=== PATIENT | female | born 1955 | race Caucasian/White ===

== ENCOUNTER 2024-07-21 17:23 | Inpatient (IN) ==
[2024-07-21 18:07] LABS: Basophils # (auto) 0.07 K/uL (0.00-0.20); Basophils % (auto) 0.6 %; Eosinophils # (auto) 0.17 K/uL (0.00-0.50); Eosinophils % (auto) 1.5 %; Hematocrit (blood only) 47.9 % (37.0-47.0); Hemoglobin 16.3 g/dl (12.0-16.0); Immature Granulocytes # (auto) 0.05 K/uL (0.01-0.20); Immature Granulocytes % (auto) 0.4 %; Lymphocytes # (auto) 3.15 K/uL (1.20-3.40); Lymphocytes % (auto) 27.7 %; Mean Corpuscular Hemoglobin 27.9 pg (25.0-34.0); Mean Corpuscular Volume 81.9 fL (80.0-100.0); Mean Platelet Volume 11.7 fL (9.4-12.4); Monocytes # (auto) 0.91 K/uL (0.11-0.59); Neutrophils # (auto) 7.01 K/uL (1.40-6.50); Neutrophils % (auto) 61.8 %; Platelet Count 233 K/uL (130-400); RDW Coefficient of Variation 14.2 % (11.5-14.5); RDW Standard Deviation 41.6 fL (36.4-46.3); Red Blood Count 5.85 M/uL (4.20-5.40); White Blood Count 11.36 K/ul (4.8-10.8)
--- NOTE | 2024-07-21 18:11 | Emergency Department Note ---
Impression & Plan Hypokalemia, Current every day smoker, Acute kidney injury, Recurrent falls, Elevated hemoglobin, Right bundle branch block ED Provider Note NAME: MUKESH BARONE AGE: 69 SEX: F : 1955 ARRIVES VIA: Walk-In INFORMANT: Patient ED PROVIDER(S): Joshua Ascencio MD CHIEF COMPLAINT: Illness, generalized weakness, recurrent falls, right hip pain PLAN: Disposition: Admit MEDICAL DECISION MAKING: The patient is a pleasant 69-year-old woman with a past medical history of everyday smoking, COPD, hypothyroidism, hypertension, hyperlipidemia, GERD, diabetes, CHF with history of abnormal stress test who presents to the emergency department via walk-in accompanied by her son for evaluation of generalized weakness, dizziness with recurrent falls over the past week with patient reports having had nausea and vomiting with poor oral intake. She denies any head strike or loss of consciousness with her falls. She reports she usually develops generalized weakness in her legs and falls to her knees and hands. However last night she fell backwards onto her buttocks and has subsequently had right hip pain. She denies chest pain. She reports mild cough and congestion with shortness of breath. On evaluation the patient is fatigued appearing no distress, afebrile stable vital signs. She appears clinically dry. She has no focal neurologic deficits. She has tenderness of the right lateral aspect of the hip without gross deformity or shortening. She has limited range of motion secondary to pain. Mild right lower lumbar discomfort without discrete tenderness. No midline tenderness to palpation or step-offs of the CTL spine. Distal PMS intact. EKG demonstrates right bundle branch block with LVH without prior for comparison. There is no overt ST elevation or depression. Chest x-ray negative for acute cardiopulmonary process. Plain films of the pelvis and right hip negative for fracture. WBC 11.3 K with neutrophilia but no left shift, nonspecific. H/H 16.3/47.9, increased from prior and consistent with the patient's clinical dry appearance as well as her daily smoking and COPD. Chemistry without metabolic acidosis. Initial potassium 2.5 with IV repletion initiated as well as oral repletion provided. Creatinine is 1.6, increased from patient's normal baseline consistent with CLAUDIO. LFTs are unremarkable. High-sensitivity troponin initially 14.4 with delta 2-hour HS troponin 11.2, within normal limits. Lipase is not elevated. TSH within normal limits. UA without convincing evidence of infection. Respiratory BioFire was negative. CT of the head negative for acute abnormalities. CT of the lumbar spine and abdomen pelvis also negative for acute traumatic findings or acute process otherwise. Given the patient's severely low potassium and CLAUDIO patient and her son agree with plan admission for further management. Case was discussed with JUANJOSE Jeronimo PAC, with JUANJOSE Gary hospitalist who will evaluate the patient for admission. Further management per admitting team. Triage Nursing notes reviewed and agree them. Prior/external medical records reviewed Vital Signs: reviewed Differential diagnosis: Infection, dehydration, metabolic abnormality, hypo/hyperglycemia, electrolyte disturbance, anemia, hypoxia, cardiac sources, intracerebral event, toxicologic, neurologic, as well as other pathologies. ER treatment provided: See below. Diagnostics interpreted by me: ECG: Normal sinus rhythm, 83 bpm, no ectopy, right bundle branch block, LVH, no overt ST elevation or depression, QTc 528, QRS 162. Cardiac Monitoring: An order for continuous cardiac monitoring was placed and demonstrated normal sinus rhythm, 83 bpm, no ectopy. Laboratory studies: See below Imaging studies: See below Consultation(s): JUANJOSE Jeronimo PAC, with JUANJOSE Gary hospitalist HPI: The patient is a pleasant 69-year-old woman with a past medical history of everyday smoking, COPD, hypothyroidism, hypertension, hyperlipidemia, GERD, diabetes, CHF with history of abnormal stress test who presents to the emergency department via walk-in accompanied by her son for evaluation of generalized weakness, dizziness with recurrent falls over the past week with patient reports having had nausea and vomiting with poor oral intake. She denies any head strike or loss of consciousness with her falls. She reports she usually develops generalized weakness in her legs and falls to her knees and hands. However last night she fell backwards onto her buttocks and has subsequently had right hip pain. She denies chest pain. She reports mild cough and congestion with shortness of breath. ROS: See above HPI for pertinent positives & negatives. A total of 10 systems reviewed and were otherwise negative. VITALS:See Below PHYSICAL EXAMINATION: GENERAL: Awake, alert, fatigued-appearing, in no distress HENT: Normocephalic, atraumatic. Oropharynx with dry mucous membranes and otherwise unremarkable. . EYES: Normal conjunctiva. Sclera non-icteric. EOMI. No nystamgus. PEARRL. NECK: Supple. No nuchal rigidity. FROM. No JVD. No midline tenderness to palpation or step-offs. RESPIRATORY: Clear to auscultation. CARDIAC: Regular rate, normal rhythm. Extremities warm and well perfused. Pulses equal. ABDOMEN: Soft, non-distended. No tenderness to palpation. No rebound or guarding. No masses. MUSCULOSKELETAL: Chest examination reveals no tenderness. The back is symmetrical on inspection without obvious abnormality. There is no CVA tenderness to palpation. Tenderness of the right lateral aspect of the hip without gross deformity or shortening. Limited range of motion secondary to pain. Mild right lower lumbar discomfort without discrete tenderness. No midline tenderness to palpation or step-offs of the CTL spine. Distal PMS intact. LOWER EXTREMITIES: Calves are equal size bilaterally and non-tender. No edema. No discoloration. NEURO: Normal sensorium. No focal sensory or motor deficits noted. 5/5 strength and SILT x 4 extremities. Intact [id number]. SKIN: No rash or jaundice noted. Joshua Ascencio MD Past Med/Surg History Problem List Acute diarrhea Vomiting Chest pain Right bundle branch block (Acute) Elevated hemoglobin (Acute) Recurrent falls (Acute) Hypokalemia (Acute) Dizzy Fall Leukocytosis Hypokalemia Acute kidney injury (Acute) Insomnia Spondylosis without myelopathy or radiculopathy, lumbar region Lumbar degenerative disc disease Post laminectomy syndrome Chronic pain Lightheaded Abnormal stress test CHF (congestive heart failure) Current every day smoker (Acute) Depression with anxiety Hypothyroid COPD (chronic obstructive pulmonary disease) (Chronic) Diabetes (Chronic) GERD (gastroesophageal reflux disease) (Chronic) High cholesterol (Chronic) Hypertension (Chronic) Surgical History History of back surgery X3 S/P appendectomy S/P knee surgery L, "They took my kneecap out." S/P hernia surgery X12 per pt Family History Mother Breast cancer Denies family history of Ovarian cancer Prostate cancer Myocardial infarction Colorectal cancer Social History Smoking Status: Current every day smoker Tobacco Type: Cigarettes Age Started Using Tobacco: 14; packs per day: 0.5; Cigarettes Per Day: 5; Second Hand Exposure: No; Do You Dip or Chew Tobacco: No; Tobacco Cessation Education Requested by Patient: No Hx Alcohol Use: No Hx Substance Use: No Preferred Language: Uzbek Communication Ability: Effective 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: No Beliefs That Will Affect Care: None marital status: Legally Current Living Situation: Alone Current Living Situation Comment: son current occupational status: disabled How many Children do You have: 4 Other Information That Helps Us Care for You: No Feels Safe at Home: Yes Safety Concerns: Feels Safe At This Time Childhood Exposure to Second-Hand Smoke: Yes Diet: regular Dental Care, Regularly: No Physical Activity Frequency: Does not Exercise Seatbelt Use: always Sunscreen Use: Yes Assistive Devices: Denture - Upper and Glasses Allergies Allergies Allergy/AdvReac Type Severity Reaction Status Date / Time No Known Drug Allergies Allergy Verified 04/29/24 11:40 Home Meds Home Medications Medication Instructions Recorded Confirmed albuterol sulfate 90 mcg/actuation 2 puff inhalation Q6H PRN 01/05/24 07/21/24 aerosol inhaler Shortness Of Breath Or Wheezing fluticasone fur. 200 mcg-umeclid 1 inh inhalation QA 01/05/24 07/21/24 62.5 mcg-vilant 25 mcg inhalat.powder (Trelegy Ellipta) chlorthalidone 50 mg tablet 50 mg PO QAM 07/21/24 07/21/24 dapagliflozin propanediol 10 mg 10 mg PO [facility] 07/21/24 07/21/24 tablet (Farxiga) ezetimibe 10 mg tablet 10 mg PO QAM 07/21/24 07/21/24 levothyroxine 112 mcg tablet 112 mcg PO DAILYBB 07/21/24 07/21/24 metoprolol succinate 25 mg 25 mg PO QA 07/21/24 07/21/24 tablet,extended release 24 hr roflumilast 500 mcg tablet 500 mcg PO QAM 07/21/24 07/21/24 rosuvastatin 40 mg tablet 40 mg PO HS 07/21/24 07/21/24 sertraline 100 mg tablet 150 mg PO QA 07/21/24 07/21/24 tizanidine 4 mg tablet 4 mg PO BID 07/21/24 07/21/24 Previous Rx's Medication Instructions Recorded nitroglycerin 0.4 mg sublingual 0.4 mg sublingual Q5M PRN chest 03/05/24 tablet pain #25 tabs Spacer for Inhaler #1 ea 04/21/24 furosemide 20 mg tablet 20 mg PO QAM #30 tabs 06/14/24 eszopiclone 2 mg tablet (Lunesta) 2 mg PO HS PRN insomnia #30 tabs 06/16/24 oxycodone 10 mg tablet 10 mg PO QID PRN pain #120 tabs 07/15/24 Results & Data (ED) Vital Signs Vital Signs - 24 hr 07/21/24 17:26 07/21/24 17:56 07/21/24 17:57 Temperature 36.8 C Temperature Source Temporal Artery Scan Pulse Rate 90 82 80 Pulse Rate [Apical] Pulse Rhythm Regular Pulse Rhythm [Apical] Respiratory Rate 16 20 Respiratory Effort / Characteristics Respiratory Depth Blood Pressure 135/83 Blood Pressure [Right Arm] Blood Pressure Mean 100 Blood Pressure Mean [Right Arm] Pulse Oximetry 95 94 Oxygen Delivery Method Room Air Room Air Sepsis Recent Fever Within 48 Hours No Sepsis New/Unexplained Change in Mental Status N/A Sepsis Action Taken by Nursing No Action Required 07/21/24 18:11 07/21/24 19:00 07/21/24 21:00 Temperature Temperature Source Pulse Rate Pulse Rate [Apical] 70 66 Pulse Rhythm Pulse Rhythm [Apical] Regular Respiratory Rate 16 17 Respiratory Effort / Characteristics Non-Labored Spontaneous Non-Labored Spontaneous Respiratory Depth Normal Normal Blood Pressure Blood Pressure [Right Arm] 139/79 146/77 H Blood Pressure Mean Blood Pressure Mean [Right Arm] 99 100 Pulse Oximetry 92 94 94 Oxygen Delivery Method Room Air Room Air Room Air Sepsis Recent Fever Within 48 Hours Sepsis New/Unexplained Change in Mental Status Sepsis Action Taken by Nursing Laboratory Data Attestation: I reviewed the patient's lab results. 07/21/24 17:45 07/21/24 23:56 Lab Results 07/21/24 07/21/24 07/21/24 Range/Units 17:30 17:45 19:42 WBC 11.36 H (4.8-10.8) K/ul RBC 5.85 H (4.20-5.40) M/uL Hgb 16.3 H (12.0-16.0) g/dl Hct 47.9 H (37.0-47.0) % MCV 81.9 (80.0-100.0) fL MCH 27.9 (25.0-34.0) pg MCHC 34.0 (32.0-36.0) g/dL RDW Std Deviation 41.6 (36.4-46.3) fL RDW Coeff of Gerri 14.2 (11.5-14.5) % Plt Count 233 (130-400) K/uL MPV 11.7 (9.4-12.4) fL Immature Gran % (Auto) 0.4 % Neut % (Auto) 61.8 % Lymph % (Auto) 27.7 % Smith % (Auto) 8.0 % Eos % (Auto) 1.5 % Baso % (Auto) 0.6 % Neut # (Auto) 7.01 H (1.40-6.50) K/uL Lymph # (Auto) 3.15 (1.20-3.40) K/uL Smith # (Auto) 0.91 H (0.11-0.59) K/uL Eos # (Auto) 0.17 (0.00-0.50) K/uL Baso # (Auto) 0.07 (0.00-0.20) K/uL Immature Gran # (Auto) 0.05 (0.01-0.20) K/uL PT 10.9 (9.0-12.0) Seconds INR 1.0 (0.9-1.1) Sodium 136 (136-145) mmol/L Potassium TNP 2.5 L* Chloride 94 L (98-107) mmol/L Carbon Dioxide 29 (21-32) mmol/L Anion Gap 13 H (3-11) BUN 39 H (6-23) mg/dl Creatinine 1.62 H (0.6-1.2) mg/dl Est Cr Clr Drug Dosing Not Reportable eGFR 34.18 BUN/Creatinine Ratio 24.1 H (10-20) Glucose 109 H (70-99(Fasting)) mg/dl Calcium 10.0 (8.6-10.3) mg/dl Phosphorus 3.5 (2.5-4.9) mg/dl Magnesium 2.3 (1.7-2.4) mg/dl Total Bilirubin 0.5 (0.2-1.0) mg/dl AST TNP 20 ALT 12 (7-52) U/L Alkaline Phosphatase 89 (34-104) U/L Troponin I High Sens 14.4 H 11.2 (0-14) pg/ml B-Natriuretic Peptide 28 (0-100) pg/ml Total Protein 9.1 H (6.0-8.3) gm/dl Albumin 4.9 (3.4-5.0) gm/dl Globulin 4.2 H (2.5-4.0) gm/dl Albumin/Globulin Ratio 1.2 (0.9-2) Lipase 28 (11-82) U/L TSH 2.511 (0.300-4.500) uIu/ml Urine Color Urine Appearance (Clear) Urine pH (4.5-7.5) Ur Specific [place]wood (1.000-1.030) Urine Protein (Negative) Urine Glucose (UA) (Negative) Urine Ketones (Negative) Urine Blood (Negative) Urine Nitrite (Negative) Urine Bilirubin (Negative) Urine Urobilinogen (Negative) Ur Leukocyte Esterase (Negative) Ur Random Creatinine mg/dl Ur Random Sodium mmol/L Adenovirus (PCR) Not Detected (NotDetected) B. pertussis DNA (PCR) Not Detected (NotDetected) B.parapertussis DNA PCR Not Detected (NotDetected) C. pneumoniae DNA (PCR) Not Detected (NotDetected) Coronavirus OC43 (PCR) Not Detected (NotDetected) Coronavirus HKU1 (PCR) Not Detected (NotDetected) Coronavirus 229E (PCR) Not Detected (NotDetected) SARS-CoV-2 (PCR) Not Detected (NotDetected) Coronavirus NL63 (PCR) Not Detected (NotDetected) Human Metapneumovir PCR Not Detected (NotDetected) Influenza Type A (PCR) Not Detected (NotDetected) Influenza Type B (PCR) Not Detected (NotDetected) M. pneumoniae (PCR) Not Detected (NotDetected) Parainfluenza 1 (PCR) Not Detected (NotDetected) Parainfluenza 2 (PCR) Not Detected (NotDetected) Parainfluenza 3 (PCR) Not Detected (NotDetected) Parainfluenza 4 (PCR) Not Detected (NotDetected) RSV (PCR) Not Detected (NotDetected) Entero/Rhino (PCR) Not Detected (NotDetected) 07/21/24 Range/Units 21:23 WBC (4.8-10.8) K/ul RBC (4.20-5.40) M/uL Hgb (12.0-16.0) g/dl Hct (37.0-47.0) % MCV (80.0-100.0) fL MCH (25.0-34.0) pg MCHC (32.0-36.0) g/dL RDW Std Deviation (36.4-46.3) fL RDW Coeff of Gerri (11.5-14.5) % Plt Count (130-400) K/uL MPV (9.4-12.4) fL Immature Gran % (Auto) % Neut % (Auto) % Lymph % (Auto) % Smith % (Auto) % Eos % (Auto) % Baso % (Auto) % Neut # (Auto) (1.40-6.50) K/uL Lymph # (Auto) (1.20-3.40) K/uL Smith # (Auto) (0.11-0.59) K/uL Eos # (Auto) (0.00-0.50) K/uL Baso # (Auto) (0.00-0.20) K/uL Immature Gran # (Auto) (0.01-0.20) K/uL PT (9.0-12.0) Seconds INR (0.9-1.1) Sodium (136-145) mmol/L Potassium Chloride (98-107) mmol/L Carbon Dioxide (21-32) mmol/L Anion Gap (3-11) BUN (6-23) mg/dl Creatinine (0.6-1.2) mg/dl Est Cr Clr Drug Dosing eGFR BUN/Creatinine Ratio (10-20) Glucose (70-99(Fasting)) mg/dl Calcium (8.6-10.3) mg/dl Phosphorus (2.5-4.9) mg/dl Magnesium (1.7-2.4) mg/dl Total Bilirubin (0.2-1.0) mg/dl AST ALT (7-52) U/L Alkaline Phosphatase (34-104) U/L Troponin I High Sens (0-14) pg/ml B-Natriuretic Peptide (0-100) pg/ml Total Protein (6.0-8.3) gm/dl Albumin (3.4-5.0) gm/dl Globulin (2.5-4.0) gm/dl Albumin/Globulin Ratio (0.9-2) Lipase (11-82) U/L TSH (0.300-4.500) uIu/ml Urine Color Yellow Urine Appearance Clear (Clear) Urine pH 5.0 (4.5-7.5) Ur Specific [place] 1.022 (1.000-1.030) Urine Protein Negative (Negative) Urine Glucose (UA) 1+ H (Negative) Urine Ketones Negative (Negative) Urine Blood Negative (Negative) Urine Nitrite Negative (Negative) Urine Bilirubin Negative (Negative) Urine Urobilinogen Negative (Negative) Ur Leukocyte Esterase Negative (Negative) Ur Random Creatinine 58.2 mg/dl Ur Random Sodium 63 mmol/L Adenovirus (PCR) (NotDetected) B. pertussis DNA (PCR) (NotDetected) B.parapertussis DNA PCR (NotDetected) C. pneumoniae DNA (PCR) (NotDetected) Coronavirus OC43 (PCR) (NotDetected) Coronavirus HKU1 (PCR) (NotDetected) Coronavirus 229E (PCR) (NotDetected) SARS-CoV-2 (PCR) (NotDetected) Coronavirus NL63 (PCR) (NotDetected) Human Metapneumovir PCR (NotDetected) Influenza Type A (PCR) (NotDetected) Influenza Type B (PCR) (NotDetected) M. pneumoniae (PCR) (NotDetected) Parainfluenza 1 (PCR) (NotDetected) Parainfluenza 2 (PCR) (NotDetected) Parainfluenza 3 (PCR) (NotDetected) Parainfluenza 4 (PCR) (NotDetected) RSV (PCR) (NotDetected) Entero/Rhino (PCR) (NotDetected) Administered Medications Potassium Chloride (K Shayan / Wtr) 10 meq in 100 mls @ 100 mls/hr IV Q1H NATE Stop: 01/16/25 05:29 Last Admin: 07/22/24 03:41 Dose: 100 mls/hr Documented By: Infusion: 07/22/24 03:35 Dose: Infused Documented By: Admin: 07/22/24 02:35 Dose: 100 mls/hr Documented By: Infusion: 07/22/24 02:35 Dose: Infused Documented By: Admin: 07/22/24 01:37 Dose: 100 mls/hr Documented By: SANTANA Sodium Chloride (Nss) 500 mls @ 80 mls/hr IV .Q6H15M NATE Stop: 07/22/24 07:44 Last Admin: 07/22/24 02:28 Dose: 80 mls/hr Documented By: SANTANA Miscellaneous (Order Awaiting Action - Farxiga 10 Mg Tablet) 1 each N/A QS NATE Stop: 08/21/24 00:00 Last Admin: 07/22/24 00:34 Dose: Not Given Documented By: SANTANA Rosuvastatin Calcium (Rosuvastatin Calcium 20 Mg Tab) 40 mg PO HS [facility] Stop: 08/20/24 23:44 Last Admin: 07/22/24 00:33 Dose: 40 mg Documented By: SANTANA Tizanidine HCl (Tizanidine Hcl 4 Mg Tablet) 4 mg PO BID [facility] Stop: 08/20/24 23:44 Last Admin: 07/22/24 00:33 Dose: 4 mg Documented By: SANTANA Discontinued Medications Sodium Chloride (Nss) 500 mls @ 999 mls/hr IV .Q31M ONE Stop: 07/21/24 19:51 Last Infusion: 07/21/24 20:01 Dose: Infused Documented By: Admin: 07/21/24 19:29 Dose: 999 mls/hr Documented By: KAI Acetaminophen (Ofirmev) 1,000 mg in 100 mls @ 400 mls/hr IV NOW STA Stop: 07/21/24 19:35 Last Infusion: 07/21/24 19:45 Dose: Infused Documented By: Admin: 07/21/24 19:26 Dose: 400 mls/hr Documented By: KAI Famotidine (Pepcid 20mg Iv Push) 20 mg in 5 mls @ 2.5 mls/min IV NOW STA Stop: 07/21/24 19:22 Last Admin: 07/21/24 19:26 Dose: 2.5 mls/min Documented By: KAI Sodium Chloride (Nss) 500 mls @ 125 mls/hr IV .Q4H ONE Stop: 07/22/24 00:40 Last Infusion: 07/22/24 01:07 Dose: Infused Documented By: Admin: 07/21/24 20:52 Dose: 125 mls/hr Documented By: KAI Potassium Chloride (K Shayan / Wtr) 10 meq in 100 mls @ 100 mls/hr IV Q1H NATE Stop: 07/21/24 22:44 Last Infusion: 07/21/24 23:00 Dose: Infused Documented By: Admin: 07/21/24 21:52 Dose: 100 mls/hr Documented By: Infusion: 07/21/24 21:52 Dose: Infused Documented By: Admin: 07/21/24 20:52 Dose: 100 mls/hr Documented By: KAI Ioversol (Optiray 320 100ml) 90 ml IV ONCE ONE Stop: 07/21/24 19:33 Last Admin: 07/21/24 19:33 Dose: 90 ml Documented By: FRANCISCA Ondansetron HCl (Ondansetron Inj 2 Mg/Ml 2 Ml Vial) 4 mg IV NOW STA Stop: 07/21/24 19:23 Last Admin: 07/21/24 19:26 Dose: 4 mg Documented By: KAI Oxycodone HCl (Oxycodone Hcl Ir 5 Mg Tab (Immediate Release)) 10 mg PO NOW STA Stop: 07/21/24 21:41 Last Admin: 07/21/24 21:49 Dose: 10 mg Documented By: KAI Potassium Chloride (Potassium Chloride Crtab 20 Meq Tabcr) 40 meq PO NOW STA Stop: 07/21/24 20:42 Last Admin: 07/21/24 20:51 Dose: 40 meq Documented By: KAI Potassium Chloride (Potassium Chloride Crtab 20 Meq Tabcr) 40 meq PO NOW STA Stop: 07/22/24 01:23 Last Admin: 07/22/24 02:28 Dose: 40 meq Documented By: SANTANA Imaging Data Radiologist's Impression: Chest X-Ray 07/21/24 17:39 Clinical History: Fall Technique: A frontal view of the chest was obtained Comparison is made with the prior examination dated 01/22/2024 Findings: There are no confluent pulmonary infiltrates. The heart size is within normal limits. No pleural effusion or pneumothorax is seen. There is no definite pulmonary nodule. No fracture is noted. No foreign body is seen Impression: No active disease Electronically signed by Eliseo Carson 07-21-2024 6:35 PM Hip/Pelvis X-Ray 07/21/24 17:39 Clinical History: Fall 2 views of the pelvis and right hip are submitted for review. Findings: No fracture or dislocation is seen. There is mild right hip osteoarthritis. No other osseous abnormality is identified. There are no radiopaque foreign bodies. Impression: 1. No definite fracture 2. Mild right hip osteoarthritis Electronically signed by Eliseo Carson 07-21-2024 6:34 PM Abdomen/Pelvis CT 07/21/24 19:16 Exam(s): CT ABDOMEN + PELVIS With Contrast IV Amt: 90 cc opti 320 EXAM: CT Abdomen and Pelvis With Intravenous Contrast CLINICAL HISTORY: Reason for exam: fall, right low back/hip pain. TECHNIQUE: Axial computed tomography images of the abdomen and pelvis with intravenous contrast. CTDI is 26.56 mGy and DLP is 1362.08 mGy-cm. Automated exposure control was utilized for the study. A dose lowering technique was utilized adhering to the principles of ALARA. CONTRAST: Patient received 90 cc opti 320 of IV contrast COMPARISON: No relevant prior studies available. FINDINGS: ABDOMEN: Liver: Unremarkable. Gallbladder and bile ducts: Cholelithiasis. Pancreas: Unremarkable. Spleen: Unremarkable. Adrenals: Unremarkable. Kidneys and ureters: Cortical scarring in the right kidney. Stomach and bowel: Unremarkable. PELVIS: Appendix: No findings to suggest acute appendicitis. Bladder: Unremarkable. Reproductive: Hysterectomy. ABDOMEN and PELVIS: Intraperitoneal space: Unremarkable. No free air. No significant fluid collection. Bones/joints: No acute fracture. Soft tissues: Unremarkable. Vasculature: Aortobiiliac atheromatous disease. Lymph nodes: Unremarkable. IMPRESSION: No acute traumatic injury. Electronically signed by: Don Rhodes MD 07/21/24 20:[address] 07/21/24 19:16 Exam(s): CT L SPINE With Contrast IV Amt: 90 cc opti 320 EXAM: CT Lumbar Spine With Intravenous Contrast CLINICAL HISTORY: Reason for exam: pain fall. TECHNIQUE: Axial computed tomography images of the lumbar spine with intravenous contrast. CTDI is 26 mGy and DLP is 1360 mGy-cm. Automated exposure control was utilized for the study. A dose lowering technique was utilized adhering to the principles of ALARA. CONTRAST: Patient received 90 cc opti 320 of IV contrast COMPARISON: No relevant prior studies available. FINDINGS: Vertebrae: No acute fracture or malalignment. Posterior pedicle screw and jonah construct from L3-L5. No hardware complication. Degenerative changes most pronounced at L2-3. No critical canal stenosis. Moderate bilateral foraminal stenosis at this level. Discs/spinal canal/neural foramina: See above. Soft tissues: Unremarkable. IMPRESSION: No acute fracture or malalignment. Electronically signed by: Don Rhodes MD 07/21/24 20:[address] 07/21/24 19:18 Exam(s): CT HEAD Without Contrast EXAM: CT Head Without Intravenous Contrast CLINICAL HISTORY: Reason for exam: dizziness. TECHNIQUE: Axial computed tomography images of the head/brain without intravenous contrast. CTDI is 35.65 mGy and DLP is 546.36 mGy-cm. Automated exposure control was utilized for the study. A dose lowering technique was utilized adhering to the principles of ALARA. COMPARISON: No relevant prior studies available. FINDINGS: Brain: No hemorrhage, extra-axial fluid collection, mass effect, or edema. Ventricles: Unremarkable. Bones/joints: Unremarkable. No fracture. Soft tissues: Unremarkable. Sinuses: No acute sinusitis. Mastoid air cells: Unremarkable as visualized. IMPRESSION: Unremarkable exam. Electronically signed by: Don Rhodes MD 07/21/24 20:42 PM Discharge Plan Visit Data Chief Complaint: Dizziness Stated Complaint: lightheaded, falling often, NAUSEA, HEADACHE ED Provider: Joshua Ascencio Discharge Problem: Hypokalemia, Current every day smoker, Acute kidney injury, Recurrent falls, Elevated hemoglobin, Right bundle branch block Patient Disposition: Admitted As Inpatient Discharge Instructions Interventions: ED Discharge Assessment Last Done: 07/21/24 23:04
--- NOTE | 2024-07-21 18:34 | XRay Report ---
Clinical History: Fall 2 views of the pelvis and right hip are submitted for review. Findings: No fracture or dislocation is seen. There is mild right hip osteoarthritis. No other osseous abnormality is identified. There are no radiopaque foreign bodies. Impression: 1. No definite fracture 2. Mild right hip osteoarthritis Electronically signed by Eliseo Carson 07-21-2024 6:34 PM
--- NOTE | 2024-07-21 18:35 | XRay Report ---
Clinical History: Fall Technique: A frontal view of the chest was obtained Comparison is made with the prior examination dated 01/22/2024 Findings: There are no confluent pulmonary infiltrates. The heart size is within normal limits. No pleural effusion or pneumothorax is seen. There is no definite pulmonary nodule. No fracture is noted. No foreign body is seen Impression: No active disease Electronically signed by Eliseo Carson 07-21-2024 6:35 PM
[2024-07-21 18:36] LABS: Alanine Aminotransferase 12 U/L (7-52); Albumin Globulin Ratio 1.2 (0.9-2); Albumin Level 4.9 gm/dl (3.4-5.0); Alkaline Phosphatase 89 U/L (34-104); Anion Gap 13 (3-11); BUN Creatinine Ratio 24.1 (10-20); Bilirubin,Total 0.5 mg/dl (0.2-1.0); Blood Urea Nitrogen 39 mg/dl (6-23); Carbon Dioxide 29 mmol/L (21-32); Chloride 94 mmol/L (98-107); Globulin 4.2 gm/dl (2.5-4.0); Glucose 109 mg/dl (70-99(Fasting)); Lipase 28 U/L (11-82); Magnesium 2.3 mg/dl (1.7-2.4); Phosphorus 3.5 mg/dl (2.5-4.9); Sodium 136 mmol/L (136-145); Total Protein 9.1 gm/dl (6.0-8.3); Troponin I High Sensitivity 14.4 pg/ml (0-14)
[2024-07-21 18:37] LABS: Prothrombin Time 10.9 Seconds (9.0-12.0)
[2024-07-21 18:44] LABS: Thyroid Stimulating Hormone 2.511 uIu/ml (0.300-4.500)
[2024-07-21 18:49] LABS: Adenovirus PCR Not Detected (NotDetected); Bordetella parapertussis PCR Not Detected (NotDetected); Bordetella pertussis PCR Not Detected (NotDetected); Chlamydia pneumoniae PCR Not Detected (NotDetected); Coronavirus 229E PCR Not Detected (NotDetected); Coronavirus CoV-2 (COVID19)PCR Not Detected (NotDetected); Coronavirus HKU1 PCR Not Detected (NotDetected); Coronavirus NL63 PCR Not Detected (NotDetected); Coronavirus OC43PCR Not Detected (NotDetected); Human Metapneumovirus PCR Not Detected (NotDetected); Influenza A PCR Not Detected (NotDetected); Influenza B PCR Not Detected (NotDetected); Mycoplasma pneumoniae PCR Not Detected (NotDetected); Parainfluenza Virus 1 PCR Not Detected (NotDetected); Parainfluenza Virus 2 PCR Not Detected (NotDetected); Parainfluenza Virus 3 PCR Not Detected (NotDetected); Parainfluenza Virus 4 PCR Not Detected (NotDetected); Respiratory Syncytial VirusPCR Not Detected (NotDetected); Rhinovirus/Enterovirus PCR Not Detected (NotDetected)
[2024-07-21] MEDS: ONDANSETRON INJ 2 MG/ML 2 ML VIAL IV STA (19:26)
[2024-07-21] MEDS: ACETAMINOPHEN 1,000 MG/100 ML VIAL IV STA (19:26)
[2024-07-21] MEDS: FAMOTIDINE 20MG IV PUSH 20 MG/5 ML SYR IV STA (19:26)
[2024-07-21] MEDS: SODIUM CHLORIDE 0.9% 500 ML IV ONE ×2 (19:29→20:52)
[2024-07-21] MEDS: OPTIRAY 320 100ml IV ONE (19:33)
[2024-07-21 20:27] LABS: Potassium 2.5 mmol/L (3.5-5.1)
--- NOTE | 2024-07-21 20:43 | CT Scan Report ---
Exam(s): CT HEAD Without Contrast EXAM: CT Head Without Intravenous Contrast CLINICAL HISTORY: Reason for exam: dizziness. TECHNIQUE: Axial computed tomography images of the head/brain without intravenous contrast. CTDI is 35.65 mGy and DLP is 546.36 mGy-cm. Automated exposure control was utilized for the study. A dose lowering technique was utilized adhering to the principles of ALARA. COMPARISON: No relevant prior studies available. FINDINGS: Brain: No hemorrhage, extra-axial fluid collection, mass effect, or edema. Ventricles: Unremarkable. Bones/joints: Unremarkable. No fracture. Soft tissues: Unremarkable. Sinuses: No acute sinusitis. Mastoid air cells: Unremarkable as visualized. IMPRESSION: Unremarkable exam. Electronically signed by: Don Rhodes MD 07/21/24 20:42 PM
--- NOTE | 2024-07-21 20:46 | CT Scan Report ---
Exam(s): CT L SPINE With Contrast IV Amt: 90 cc opti 320 EXAM: CT Lumbar Spine With Intravenous Contrast CLINICAL HISTORY: Reason for exam: pain fall. TECHNIQUE: Axial computed tomography images of the lumbar spine with intravenous contrast. CTDI is 26 mGy and DLP is 1360 mGy-cm. Automated exposure control was utilized for the study. A dose lowering technique was utilized adhering to the principles of ALARA. CONTRAST: Patient received 90 cc opti 320 of IV contrast COMPARISON: No relevant prior studies available. FINDINGS: Vertebrae: No acute fracture or malalignment. Posterior pedicle screw and jonah construct from L3-L5. No hardware complication. Degenerative changes most pronounced at L2-3. No critical canal stenosis. Moderate bilateral foraminal stenosis at this level. Discs/spinal canal/neural foramina: See above. Soft tissues: Unremarkable. IMPRESSION: No acute fracture or malalignment. Electronically signed by: Don Rhodes MD 07/21/24 20:45 PM
--- NOTE | 2024-07-21 20:47 | CT Scan Report ---
Exam(s): CT ABDOMEN + PELVIS With Contrast IV Amt: 90 cc opti 320 EXAM: CT Abdomen and Pelvis With Intravenous Contrast CLINICAL HISTORY: Reason for exam: fall, right low back/hip pain. TECHNIQUE: Axial computed tomography images of the abdomen and pelvis with intravenous contrast. CTDI is 26.56 mGy and DLP is 1362.08 mGy-cm. Automated exposure control was utilized for the study. A dose lowering technique was utilized adhering to the principles of ALARA. CONTRAST: Patient received 90 cc opti 320 of IV contrast COMPARISON: No relevant prior studies available. FINDINGS: ABDOMEN: Liver: Unremarkable. Gallbladder and bile ducts: Cholelithiasis. Pancreas: Unremarkable. Spleen: Unremarkable. Adrenals: Unremarkable. Kidneys and ureters: Cortical scarring in the right kidney. Stomach and bowel: Unremarkable. PELVIS: Appendix: No findings to suggest acute appendicitis. Bladder: Unremarkable. Reproductive: Hysterectomy. ABDOMEN and PELVIS: Intraperitoneal space: Unremarkable. No free air. No significant fluid collection. Bones/joints: No acute fracture. Soft tissues: Unremarkable. Vasculature: Aortobiiliac atheromatous disease. Lymph nodes: Unremarkable. IMPRESSION: No acute traumatic injury. Electronically signed by: Don Rhodes MD 07/21/24 20:46 PM
[2024-07-21] MEDS: POTASSIUM CHLORIDE CRTAB 20 MEQ TABCR PO STA (20:51)
[2024-07-21] MEDS: POTASSIUM CHLORIDE / WTR 10 MEQ/100 ML PLCT IV SCH (20:52)
--- NOTE | 2024-07-21 21:20 | History & Physical Report ---
Date of Service July 21, 2024 Assessment & Plan (1) Acute kidney injury: (2) Hypokalemia: (3) Vomiting: (4) Acute diarrhea: (5) Leukocytosis: (6) Fall: (7) Chest pain: (8) CHF (congestive heart failure): Plan Patient is a 69-year-old female with a past medical history of COPD, CHF, DM, HTN, anxiety, chronic pain, neurodermatitis. She had an abnormal stress test with cardiology in February 2024, was referred to [facility] for coronary CTA. She presents today due to vomiting, lightheadedness, and dizziness resulting in a fall last night. She is being admitted for CLAUDIO, hypokalemia, recurrent falls. She is being given IV fluids's, potassium repletion, and PT/OT ordered. #CLAUDIO/hypokalemia likely secondary to renal hypoperfusion due to dehydration with vomiting no recent NSAID use Cr increased from 0.98 to 1.62, BUN elevated to 39 indicating pre-renal cause CT AP showing cortical scarring in right kidney, no abnormalities of bladder FENa = 1.3% - indeterminate UA negative given 500 NSS bolus and 500 NSS gentle resuscitation (caution with CHF hx) trend BMP - recheck 2300 Hold nephrotoxic agents - diuretics (chlorthalidone and lasix) promote oral hydration hypokalemia - K+ 2.5 -> 20 meq IV + 40 meq po mg stable, 2.3 - trend #vomiting/diarrhea biofire negative CT AP negative clear diet, advance as tolerated QTC 530 - avoid Zofran Tylenol and metoclopramide prn #leukocytosis possibly 2/2 to chronic prednisone use although dc a few weeks ago WBC 11.36 with neutrophil predominance biofire negative, afebrile, UA negative trend CBC #fall/weakness suspect 2/2 to hypokalemia reviewed head CT, lumbar spine CT, A/P CT, hip/pelvis XR, CXR - negative for acute changes pt/ot ordered fall and aspiration precautions pt's family interested in setting up - case management consulted #chest pain chronic, Had abnormal stress test in February 2024 cardiac cath 2021 - reported to be without occlusive dz Was to have coronary CTA, insurance denied Takes nitroglycerin 1x daily with angina; continue prn trop negative 14.4 -> 11.2 EKG with chest pain monitor on tele #CHF EF 50-55% on stress test 2023 continue Farxiga holding diuretics as above heart healthy diet when tolerated Chronic stable diagnoses: COPD - no longer takes azithromycin MWF or chronic prednisone; continue Trelegy and Daliresp, albuterol prn HLD - continue Zetia and statin anxiety - continue sertraline insomnia - eszopiclone prn HTN - continue metoprolol hypothyroidism - continue levothyroxine chronic back pain - continue tizanidine and oxycodone 10mg prn VTE ppx: SCDs - low risk and fall risk Diet: clears (with vomiting) - advance as tolerated to heart healthy Dispo: med/tele Admission and Anticipated Discharge Date Admission Date: 07/21/24 History of Present Illness Chief Complaint: dizziness Primary Care Provider: IRIS Millan Patient is a 69-year-old female with a past medical history of COPD, CHF, HLD, HTN, anxiety, chronic pain, neurodermatitis. She had an abnormal stress test with cardiology in February 2024, was referred to [facility] for coronary CTA. She presents today due to vomiting, lightheadedness, and dizziness resulting in a fall last night. She was found to have an CLAUDIO and hypokalemia in ED. Patient seen at bedside with son present. She stated she has had vomiting and diarrhea for approximately 3 days. About 4 episodes of vomiting per day and 5 episodes of diarrhea per day. She also gets lightheaded when going from sitting to standing; which is chronic but has been acutely worsened for 3 days. She has had multiple falls recently, most recent last night. She stated she has had hip pain since. She denies head strike. She stated she had a fever 1 week ago with no other associated symptoms. She also has daily chest pain that is relieved with nitroglycerin, no change in frequency, has been ongoing for multiple months. She did not have the angiogram with [facility] because her insurance would not cover it. She is to have follow-up with cardiology in the near future. She does endorse nicotine use, approximately 5 cigarettes a day for about 50 years. She denies alcohol use. She lives at home with her son and his girlfriend. Son stated concern regarding care of his mother and him having to travel often, interested in home health. Patient denies fever, chills, headache, dizziness, current lightheadedness, cough, abdominal pain. She endorses chronic dyspnea due to COPD, unchanged. She has chronic tingling of bilateral lower extremities, unchanged. She also has intermittent lower extremity edema, no acute changes. She does not use oxygen at baseline. She did take her home medications today, is due for her evening medications. She wishes to be DNR/DNI. After discussion with patient and her son, is agreeable to PT/OT evals. Allergies Allergy/AdvReac Type Severity Reaction Status Date / Time No Known Drug Allergies Allergy Verified 04/29/24 11:40 Home Medications Medication Instructions Recorded Confirmed Type albuterol sulfate 90 mcg/actuation 2 puff inhalation Q6H PRN 01/05/24 07/21/24 History aerosol inhaler Shortness Of Breath Or Wheezing fluticasone fur. 200 mcg-umeclid 1 inh inhalation QAM 01/05/24 07/21/24 History 62.5 mcg-vilant 25 mcg inhalat.powder (Trelegy Ellipta) nitroglycerin 0.4 mg sublingual 0.4 mg sublingual Q5M PRN chest 03/05/24 07/21/24 Rx tablet pain #25 tabs Spacer for Inhaler #1 ea 04/21/24 07/21/24 Rx furosemide 20 mg tablet 20 mg PO QAM #30 tabs 06/14/24 07/21/24 Rx eszopiclone 2 mg tablet (Lunesta) 2 mg PO HS PRN insomnia #30 tabs 06/16/24 07/21/24 Rx oxycodone 10 mg tablet 10 mg PO QID PRN pain #120 tabs 07/15/24 07/21/24 Rx chlorthalidone 50 mg tablet 50 mg PO QAM 07/21/24 07/21/24 History dapagliflozin propanediol 10 mg 10 mg PO QAM 07/21/24 07/21/24 History tablet (Farxiga) ezetimibe 10 mg tablet 10 mg PO QAM 07/21/24 07/21/24 History levothyroxine 112 mcg tablet 112 mcg PO DAILYBB 07/21/24 07/21/24 History metoprolol succinate 25 mg 25 mg PO QAM 07/21/24 07/21/24 History tablet,extended release 24 hr roflumilast 500 mcg tablet 500 mcg PO QAM 07/21/24 07/21/24 History rosuvastatin 40 mg tablet 40 mg PO HS 07/21/24 07/21/24 History sertraline 100 mg tablet 150 mg PO QAM 07/21/24 07/21/24 History tizanidine 4 mg tablet 4 mg PO BID 07/21/24 07/21/24 History Past Med/Surg History Problem List Acute diarrhea Vomiting Chest pain Right bundle branch block (Acute) Elevated hemoglobin (Acute) Recurrent falls (Acute) Hypokalemia (Acute) Dizzy Fall Leukocytosis Hypokalemia Acute kidney injury (Acute) Insomnia Spondylosis without myelopathy or radiculopathy, lumbar region Lumbar degenerative disc disease Post laminectomy syndrome Chronic pain Lightheaded Abnormal stress test CHF (congestive heart failure) Current every day smoker (Acute) Depression with anxiety Hypothyroid COPD (chronic obstructive pulmonary disease) (Chronic) Diabetes (Chronic) GERD (gastroesophageal reflux disease) (Chronic) High cholesterol (Chronic) Hypertension (Chronic) Surgical History History of back surgery X3 S/P appendectomy S/P knee surgery L, "They took my kneecap out." S/P hernia surgery X12 per pt Family History Mother Breast cancer Denies family history of Ovarian cancer Prostate cancer Myocardial infarction Colorectal cancer Social History Smoking Status: Current every day smoker Tobacco Type: Cigarettes Age Started Using Tobacco: 14; packs per day: 0.5; Cigarettes Per Day: 5; Second Hand Exposure: No; Do You Dip or Chew Tobacco: No; Tobacco Cessation Education Requested by Patient: No Hx Alcohol Use: No Hx Substance Use: No Preferred Language: German Communication Ability: Effective 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 Beliefs That Will Affect Care: None marital status: Legally Current Living Situation: Alone Current Living Situation Comment: son current occupational status: disabled How many Children do You have: 4 Other Information That Helps Us Care for You: No Feels Safe at Home: Yes Safety Concerns: Feels Safe At This Time Childhood Exposure to Second-Hand Smoke: Yes Diet: regular Dental Care, Regularly: No Physical Activity Frequency: Does not Exercise Seatbelt Use: always Sunscreen Use: Yes Assistive Devices: Denture - Upper and Glasses Review of Systems Review of Systems: see HPI Physical Exam Physical Exam: The patient is awake, alert and oriented 3, well developed and well nourished, normocephalic and atraumatic, in no acute distress. Non-toxic appearing. HEENT- EOMI, mucous membranes dry. Hearing grossly intact. Heart-normal S1 and S2. No murmurs, rubs or gallops. Lungs-clear bilaterally, no respiratory distress, no accessory muscle use. Abdomen-normal bowel sounds and soft. No ascites noted. Non-tender. Extremities- no clubbing, cyanosis, or edema. Rheumatologic-normal range of motion. Psychiatric-normal affect. Results & Data Results & Data Vital Signs (Past 12 Hours) Vital Signs Temp Pulse Pulse Resp BP BP Pulse Ox 07/21/24 19:00 70 16 139/79 94 07/21/24 18:11 92 07/21/24 17:57 80 20 94 07/21/24 17:56 82 07/21/24 17:26 36.8 C 90 16 135/83 95 O2 Del Method 07/21/24 19:00 Room Air 07/21/24 18:11 Room Air 07/21/24 17:57 Room Air 07/21/24 17:56 07/21/24 17:26 Room Air Laboratory Results Reviewed CBC, CMP, mg, bio fire, troponin Diagnostic Findings reviewed head CT, lumbar spine CT, A/P CT, hip/pelvis XR, CXR All negative for acute changes Medications Administered ED: 500 NSS bolus, 20 meq K+ IV, 40 meq K+ po, Zofran, Pepcid IV, acetaminophen IV, 500 NSS gentle resuscitation ECG Additional Comments: RBBB, no ST changes Code Status & VTE Plan Code Status dnr/dni VTE Prophylaxis Plan VTE Prophylaxis will be ordered: Yes Supervising Physician Co-Signing Physician Notes Attending addendum: I have physically seen this patient, have supervised the CARLEEN's activities, and agree with the H&P unless as otherwise noted. 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 She presents to the emergency department after complaining of vomiting, lightheadedness and dizziness, led to a fall last night. #Acute kidney injury/dehydration/hypokalemia- Creatinine 1.62 on admission, with baseline 0.98. Follow-up creatinine 1.58 after initial supplementation Holding furosemide and chlorthalidone Given Klor-Con 40 mill equivalents p.o. x 1, and potassium chloride 10 mill equivalent IV riders x 2 from the ED Admission potassium 2.5, with follow-up 2.8 after initial supplementation Give additional Klor-Con 40 mill equivalents p.o. and IV recheck BMP in the a.m #Vomiting/diarrhea- BioFire testing negative CT abdomen pelvis negative Clear diet advancing as tolerated Tylenol and metoclopramide symptomatically Pantoprazole 40 mg IV daily at 9:00 #CHF/hypertension- Holding furosemide and chlorthalidone as noted Hold Farxiga Initial troponin 14.4, follow-up 11.2 Continue metoprolol succinate The patient will be admitted to telemetry for serial cardiac enzymes, serial EKG's, cardiac rhythm monitoring. Most recent dobutamine stress echo on 03/01/2024, with concerns regarding significant ST segment changes during peak dobutamine infusion suggestion of injury. Baseline EF 50-55%, patient reportedly is having arranged cardiac CTA #Chronic medical issues: Hyperlipidemia-continue rosuvastatin and Zetia Hypothyroidism-Continue levothyroxine COPD -continue usual inhalers COD STATUS: DNR/DNI PG Care Time/CCT Total # of Minutes Spent Total Time Spent with Patient: Total time spent is greater than 50% in coordination of care (as documented) at patient's floor/unit and/or counseling patient: Coding Level of Care Code 16480 INT INP/OBS CARE 3/75MIN Diagnoses Acute kidney injury N17.9 Hypokalemia E87.6 Vomiting R11.10 Acute diarrhea R19.7 Leukocytosis D72.829 Fall W19.XXXA Chest pain R07.9 CHF (congestive heart failure) I50.9
[2024-07-21 21:39] LABS: Appearance Urine Clear (Clear); Bilirubin Urine Negative (Negative); Blood Urine Negative (Negative); Color Urine Yellow; Glucose Urine UA 1+ (Negative); Ketones Urine Negative (Negative); Leukocyte Esterase Urine Negative (Negative); Nitrite Urine Negative (Negative); Protein Urine Negative (Negative); Specific Gravity Urine 1.022 (1.000-1.030); Urobilinogen Urine Negative (Negative)
[2024-07-21] MEDS: oxyCODONE HCL IR 5 MG TAB (IMMEDIATE RELEASE) PO STA (21:49)
[2024-07-21 23:11] LABS: Creatinine Urine Random 58.2 mg/dl
[2024-07-21] MEDS ORDERED: METOCLOPRAMIDE HCL INJ 5 MG/ML 2 ML VIAL IV PRN (23:43)
[2024-07-21] MEDS ORDERED: ALBUTEROL HFA 8 GM INHALER INH PRN (23:43)
[2024-07-21] MEDS ORDERED: NITROGLYCERIN SL 0.4 MG/TAB TAB SL PRN (23:43)
[2024-07-22] MEDS: tiZANidine HCL 4 MG TABLET PO SCH (00:33)
[2024-07-22] MEDS: ROSUVASTATIN CALCIUM 20 MG TAB PO SCH (00:33)
[2024-07-22] MEDS ORDERED: INFLUENZA VACC TS2024-25(65y+)/PF (IIV3) 0.5mL Syr IM ONE (00:51)
[2024-07-22] MEDS ORDERED: PNEUMOCOCCAL VACCINE (PCV20) 20-VAL CONJ-DIP CRM/PF 0.5 ML SYR IM ONE (00:51)
[2024-07-22 00:58] LABS: BUN Creatinine Ratio 23.4 (10-20); Creatinine Clr Calc Pharmacy 34.2 ml/min; Potassium 2.8 mmol/L (3.5-5.1)
--- NOTE | 2024-07-22 01:24 | Communication Note ---
Date of Service: July 22, 2024 Repeat potassium 2.8. Will order additional 40 meQ IV and 40 meq PO. Will ordered additional 500 mL NSS at 80 ml/hr given Cr 1.58 and IV K+ associated bu rning.
[2024-07-22] MEDS: POTASSIUM CHLORIDE / WTR 10 MEQ/100 ML PLCT IV SCH (01:37)
--- OUTSIDE RECORDS SUMMARY | 2024-07-22 02:20 | External Medical Summary | Summary of Care ---
Author Name Unknown Organization [facility] Address [address] [place] [address] Phone [phone] Care Team Providers Care Prepress Technician Name Role Phone Galdino Mccoy DO, Kenneth Primary Care Provider [phone] Reason for Visit * Reason Onset Date Comments Follow Up 03/24/2024 Encounter Details Date Type Department Care Team (Late st Contact Info) Description 03/24/2024 Telephone Radiology [facility] [address] [place] [address] Services, Scheduling [address] [place] [address] Follow Up Allergies No known active allergiesdocumented as of this encounter (statuses as of 06/01/2024) Medications LEVOTHYROXINE SODIUM 125 MCG OR TABS 1 TABLET DAILY 0 01/29/2007 Active MELOXICAM 15 MG PO TABS one tablet daily 0 01/29/2007 Active TRICOR 145 MG PO TABS one tablet daily 0 01/29/2007 Active SOMNOTE 500 MG PO CAPS one or two at bedtime as needed 0 01/29/2007 Active SINGULAIR 10 MG PO TABS one tabet daily at bedtime 0 01/29/2007 Active SPIRIVA HANDIHALER 18 MCG IN CAPS use once a day as needed 0 01/29/2007 Active ADVAIR DISKUS 250-50 MCG/DOSE IN MISC use twice a day as needed 0 01/29/2007 Active METFORMIN HCL 500 MG PO TABSIndications :Prurigo 2 tablets twice daily 30 5 07/13/2007 Active MICARDIS HCT 80-25 MG PO TABSIndications :Prurigo daily 0 07/13/2007 Active VICODIN 5-500 MG PO TABSIndications :Prurigo 1 TABLET EVERY 4 TO 6 HOURS NEEDED 0 07/13/2007 Active SIMVASTATIN 40 MG PO TABSIndications :Prurigo one tab by mouth daily 30 0 07/13/2007 Active METFORMIN HCL 500 MG PO TABSIndications :Prurigo 1 by mouth twice a day 30 5 07/13/2007 Active MUPIROCIN CALCIUM 2 % EX CREAIndications :Prurigo apply 3X a day to open sores 44.4G 5 07/13/2007 Active DOXEPIN HCL 25 MG PO CAPSIndications :Prurigo take one pill each night for skin 30 5 09/07/2007 Active documented as of this encounter (statuses as of 06/01/2024) Active Problems Problem Noted Date Diagnosed Date Prurigo 03/12/2007 documented as of this encounter (statuses as of 06/01/2024) Social History Tobacco Use Types Packs/Day Years Used Date Smoking Tobacco: Former Alcohol Use Standard Drinks/Week Comments No 0 (1 standard drink = 0.6 oz pur e alcohol) Utilities Answer Date Recorded Do you have trouble paying y our heating, water, or electric bill? (Adult - for ages 18 years and over) Not on file 12/23/2023 Is your family able to pay t he heat, water, or electric bill? (Household - for ages 0-17 years) Not on file 12/23/2023 Does your family have access to good internet? (Household - for ages 0-17 years) Not on file 12/23/2023 Social Connections Answer Date Recorded How often do you feel lonely or isolated from those around you? (Adult - for ages 18 years and over) Not on file 12/23/2023 Comments Unknown Sex and Gender Information Value Date Recorded Sex Assigned at Not on file Legal Sex Female 5:15 AM EST Gender Identity Not on file Sexual Orientation Not on file documented as of this encounter Miscellaneous Notes * Telephone Encounter - Nuria Bingham OSA - 03/24/2024 1:[address] card miguel 11-13-24 documented in this encounter Plan of Treatment Health Maintenance Due Date Last Done Comments Lipid Panel 1955 Depression Screening 1967 Hepatitis C Screening 1973 TSH 1973 DTap/Tdap Vaccines (1 - Tdap) 1974 Mammogram 1995 Cologuard 2000 Colonoscopy 2000 Colorectal Cancer Screening 2000 Fecal Occult Blood Test 2000 Sigmoidoscopy 2000 Zoster Vaccines (1 of 2) 2005 DXA Scan 2020 04/10/2006 Pneumococcal Vaccine: 65+ Ye ars (1 of 1 - PCV) 2020 COVID-19 Vaccine ( - 2023-2 5 season) 2024 Influenza Vaccine (FLU shot) (#1) 2024 HPV (Gardasil) Vaccine Aged Out No lo nger eligible based on patient's age to complete this topic Hepatitis B Vaccine Aged Out No longe r eligible based on patient's age to complete this topic MENINGOCOCCAL (MENACTRA/MENVEO) Aged Out No longer eligible based on patient's age to complete this topic documented as of this encounter Medical Devices Not on filedocumented as of this encounter Care Teams Prepress Technician Relationship Specialty Start Date End Date Jean Ahmadi Jr., DO PCP - General 01/29/07 documented as of this encounter
[2024-07-22] MEDS: SODIUM CHLORIDE 0.9% 500 ML IV SCH (02:28)
[2024-07-22] MEDS: POTASSIUM CHLORIDE CRTAB 20 MEQ TABCR PO STA (02:28)
[2024-07-22] MEDS: LEVOTHYROXINE SODIUM 112 MCG TABLET PO SCH (04:33)
[2024-07-22] MEDS: FLUTICASONE FUROATE 200MCG 14 PUFFS/INHALER INH SCH (07:59)
[2024-07-22] MEDS: UMECLIDINIUM/VILANTEROL 62.5/25MCG 7 PUFFS/INHALER INH SCH (07:59)
[2024-07-22] MEDS: ROFLUMILAST 500 MCG TAB PO SCH (08:00)
[2024-07-22] MEDS: METOPROLOL SUCC 25MG EXT REL TAB PO SCH (08:01)
[2024-07-22] MEDS: SERTRALINE HCL 50 MG TABLET PO SCH (08:01)
[2024-07-22] MEDS: EZETIMIBE 10 MG TAB PO SCH (08:01)
[2024-07-22] MEDS: PANTOprazole 40 MG/10 ML SYR IV SCH (08:04)
[2024-07-22] MEDS: oxyCODONE HCL IR 5 MG TAB (IMMEDIATE RELEASE) PO PRN (08:08)
[2024-07-22] MEDS ORDERED: NON-FORMULARY MEDICATION (Fluticasone-Umeclidin-Vilanter [Trelegy Ellipta] 200-62.5-25 mcg INH SCH (09:00)
[2024-07-22 09:35] LABS: Basophils # (auto) 0.06 K/uL (0.00-0.20); Basophils % (auto) 0.7 %; Eosinophils # (auto) 0.19 K/uL (0.00-0.50); Eosinophils % (auto) 2.1 %; Hematocrit (blood only) 38.9 % (37.0-47.0); Hemoglobin 12.7 g/dl (12.0-16.0); Immature Granulocytes # (auto) 0.06 K/uL (0.01-0.20); Immature Granulocytes % (auto) 0.7 %; Lymphocytes # (auto) 3.49 K/uL (1.20-3.40); Lymphocytes % (auto) 38.6 %; Mean Corpuscular Hemoglobin 27.2 pg (25.0-34.0); Mean Corpuscular Hgb Conc 32.6 g/dL (32.0-36.0); Mean Corpuscular Volume 83.3 fL (80.0-100.0); Mean Platelet Volume 11.4 fL (9.4-12.4); Monocytes # (auto) 0.69 K/uL (0.11-0.59); Monocytes % (auto) 7.6 %; Neutrophils # (auto) 4.55 K/uL (1.40-6.50); Neutrophils % (auto) 50.3 %; Platelet Count 167 K/uL (130-400); RDW Coefficient of Variation 14.2 % (11.5-14.5); RDW Standard Deviation 43.4 fL (36.4-46.3); Red Blood Count 4.67 M/uL (4.20-5.40); White Blood Count 9.04 K/ul (4.8-10.8)
[2024-07-22 09:37] LABS: BUN Creatinine Ratio 20.9 (10-20); Calcium 8.9 mg/dl (8.6-10.3); Creatinine Clr Calc Pharmacy 35.3 ml/min; Potassium 3.1 mmol/L (3.5-5.1)
[2024-07-22] MEDS: POTASSIUM CHLORIDE CRTAB 20 MEQ TABCR PO SCH (10:09)
--- NOTE | 2024-07-22 10:20 | Hospitalist Progress Note ---
Date of Service July 22, 2024 Assessment & Plan (1) Acute kidney injury: (2) Hypokalemia: (3) Vomiting: (4) Acute diarrhea: (5) Leukocytosis: (6) Fall: (7) Chest pain: (8) CHF (congestive heart failure): Plan Patient is a 69-year-old female with a past medical history of COPD, CHF, DM, HTN, anxiety, chronic pain, neurodermatitis. She had an abnormal stress test with cardiology in February 2024, was referred to [facility] for coronary CTA. She presents today due to vomiting, lightheadedness, and dizziness resulting in a fall last night. She is being admitted for CLAUDIO, hypokalemia, recurrent falls. Her CT A/P showed cortical scarring of the right kidney, but no cause for CLAUDIO. Imaging of head CT, Lumbar spine CT, hip/pelvis XR had no acute abnormalities or fractures from her falls. Admitted with the plan of IV fluids, potassium repletion, and PT/OT evaluations. #CLAUDIO/hypokalemia Secondary to dehydration from vomiting and diarrhea with continued diuretic use. CT A/P without Cr 1.62 on admission, improved to 1.53 after 1L NSS. Continue to encourage PO hydration. Continue to hold chlorthalidone and lasix. K improving to 3.1 after PO/IV repletion. Additonal 40meq x2 ordered. Mag is repleted. AM BMP #vomiting/diarrhea biofire negative. Prolonged QTC on EKG, prn reglan if needed, but symptomns are improving #fall/weakness suspect 2/2 to hypokalemia - subjectively patient feels improved. PT/OT pending, CM consulted #chest pain chronic, Had abnormal stress test in February 2024, follow with Dr. Tavares. Takes nitroglycerin 1x daily with angina; continue prn trop negative 14.4 -> 11.2 and pt denies CP 07/22 on roudns #CHF EF 50-55% on stress test 2023. Last cardiology note states not sure if she actually has CHF continue Farxiga. holding diuretics as above #leukocytosis - resolved. COPD - no longer takes azithromycin MWF or chronic prednisone; continue Trelegy and Daliresp, albuterol prn HLD - continue Zetia and statin anxiety - continue sertraline insomnia - eszopiclone prn HTN - continue metoprolol hypothyroidism - continue levothyroxine chronic back pain - continue tizanidine and oxycodone 10mg prn VTE ppx: SCDs - low risk and fall risk Dispo: continued inpatient stay encouraging hydration with CLAUDIO Admission and Anticipated Discharge Date Admission Date: July 21, 2024 Supervising Physician Co-Signing Physician Notes PA Supervision Note: I did not personally see or examine the patient today, but I verified all velásquez points of JODY Ramos's assessment and plan with the following exceptions/additions: None Subjective Pateint seen lying in bed, reports feeling better than yesterday. No nausea/vomiting or diarrhea since being in the hospital. Denies sick contacts. Denies CP or SOB tolerated clears and ready for advancement ambulated to the bathroom this morning - does not feel weak Tele - SR 60-70s Review of Systems Review of Systems: All systems reviewed & are unremarkable except as noted in Subjective Physical Exam Physical Exam: General: NAD, VS as above, lying in bed, non toxic appearing Resp: normal respiratory effort, lungs diminished in bases CV: RRR, no murmur, Abd: normal bowel sounds, mild generalized tenderness with palpation Extremities: Moves all extremities, no edema Neuro: A&O x3, Results & Data Results & Data Vital Signs (Past 12 Hours) Vital Signs Temp Pulse Pulse Pulse Resp BP BP 07/22/24 08:25 07/22/24 07:10 97.7 F 64 16 111/62 07/22/24 06:39 62 07/22/24 03:35 97.9 F 63 18 104/64 07/22/24 00:19 63 07/21/24 23:43 07/21/24 23:43 97.6 F 69 18 148/77 H 07/21/24 23:00 65 16 125/53 L 07/21/24 22:18 64 Pulse Ox O2 Del Method 07/22/24 08:25 Room Air 07/22/24 07:10 91 Room Air 07/22/24 06:39 07/22/24 03:35 92 Room Air 07/22/24 00:19 07/21/24 23:43 Room Air 07/21/24 23:43 93 Room Air 07/21/24 23:00 93 Room Air 07/21/24 22:18 Laboratory Results cbc and chemistry reviewed mag reviewed PG Care Time/CCT Total # of Minutes Spent Total Time Spent with Patient: Total time spent is greater than 50% in coordination of care (as documented) at patient's floor/unit and/or counseling patient: Coding Level of Care Code 26348 SUB INP/OBS CARE 3/50MIN Diagnoses Acute kidney injury N17.9 Hypokalemia E87.6 Vomiting R11.10 Acute diarrhea R19.7 Leukocytosis D72.829 Fall W19.XXXA Chest pain R07.9 CHF (congestive heart failure) I50.9
[2024-07-22] MEDS: ACETAMINOPHEN 325 MG TAB PO PRN (19:43)
[2024-07-22 19:49] VITALS: RESP 18
[2024-07-22] MEDS: ESZOPICLONE 1 MG TAB PO PRN (22:11)
[2024-07-23 07:05] LABS: BUN Creatinine Ratio 18.2 (10-20); Calcium 9.3 mg/dl (8.6-10.3); Magnesium 2.1 mg/dl (1.7-2.4); Potassium 3.2 mmol/L (3.5-5.1)
[2024-07-23] MEDS: SODIUM CHLORIDE 0.9% 1,000 ML IV ONE (08:33)
[2024-07-23] MEDS: POTASSIUM CHLORIDE CRTAB 20 MEQ TABCR PO SCH (08:47)
[2024-07-23 15:04] LABS: Creatinine Clr Calc Pharmacy 32.5 ml/min; Potassium 3.5 mmol/L (3.5-5.1)
--- NOTE | 2024-07-23 16:07 | Discharge Summary ---
Discharge Summary Date of Service July 23, 2024 Principal Dx & Hospital Course #1 = Principal Diagnosis (1) Acute kidney injury: (2) Hypokalemia: (3) Vomiting: (4) Acute diarrhea: (5) Leukocytosis: (6) Fall: (7) Chest pain: (8) CHF (congestive heart failure): Plan Patient is a 69-year-old female with a past medical history of COPD, CHF, DM, HTN, anxiety, chronic pain, neurodermatitis. She had an abnormal stress test with cardiology in February 2024, was referred to [facility] for coronary CTA. She presents today due to vomiting, lightheadedness, and dizziness resulting in a fall last night. She is being admitted for CLAUDIO, hypokalemia, recurrent falls. Her CT A/P showed cortical scarring of the right kidney, but no cause for CLAUDIO. Imaging of head CT, Lumbar spine CT, hip/pelvis XR had no acute abnormalities or fractures from her falls. Admitted with the plan of IV fluids, potassium repletion, and PT/OT evaluations. Her symptoms and labs have improved. Stable from home with Home health 07/23. #CLAUDIO/hypokalemia Secondary to dehydration from vomiting and diarrhea with continued diuretic use. received IV and p.o. potassium replacement, potassium has corrected to 3.5. Received IV fluids and encouraged increased p.o. intake. Chlorthalidone discontinued. Lasix on hold at discharge, repeat BMP ordered for Wednesday 07/26 (with results to Shanice Urban [employer], advised patient to discuss with her PCP when to resume Lasix based on those lab results. Cr improved from 1.81 --> 1.67 day of discharge. #vomiting/diarrhea biofire negative. no episodes of diarrhea or vomiting while inpatient. #fall/weakness Home health arranged at discharge #chest pain troponin peaked at 14, no issues with chest pain during admission #CHF continue Farxiga. holding diuretics as above #leukocytosis - resolved. COPD - continue Trelegy and Daliresp, albuterol prn HLD - continue Zetia and statin anxiety - continue sertraline insomnia - eszopiclone prn HTN - continue metoprolol hypothyroidism - continue levothyroxine chronic back pain - continue tizanidine and oxycodone 10mg prn dispo: Discharge to home today with home health. Family updated at bedside 07/23 Notes For Next Care Provider repeat BMP ordered for 07/26, Lasix hold pending these results Medication Changes From Visit chlorthalidone discontinued Admission HPI Per Admitting Provider Patient is a 69-year-old female with a past medical history of COPD, CHF, HLD, HTN, anxiety, chronic pain, neurodermatitis. She had an abnormal stress test with cardiology in February 2024, was referred to [facility] for coronary CTA. She presents today due to vomiting, lightheadedness, and dizziness resulting in a f all last night. She was found to have an CLAUDIO and hypokalemia in ED. Patient seen at bedside with son present. She stated she has had vomiting and diarrhea for approximately 3 days. About 4 episodes of vomiting per day and 5 episodes of diarrhea per day. She also gets lightheaded when going from sitting to standing; which is chronic but has been acutely worsened for 3 days. She has had multiple falls recently, most recent last night. She stated she has had hip pain since. She denies head strike. She stated she had a fever 1 week ago with no other associated symptoms. She also has daily chest pain that is relieved with nitroglycerin, no change in frequency, has been ongoing for multiple months. She did not have the angiogram with [facility] because her insurance would not cover it. She is to have follow-up with cardiology in the near future. She does endorse nicotine use, approximately 5 cigarettes a day for about 50 years. She denies alcohol use. She lives at home with her son and his girlfriend. Son stated concern regarding care of his mother and him having to travel often, interested in home health. Patient denies fever, chills, headache, dizziness, current lightheadedness, cough, abdominal pain. She endorses chronic dyspnea due to COPD, unchanged. She has chronic tingling of bilateral lower extremities, unchanged. She also has intermittent lower extremity edema, no acute changes. She does not use oxygen at baseline. She did take her home medications today, is due for her evening medications. She wishes to be DNR/DNI. After discussion with patient and her son, is agreeable to PT/OT evals. Discharge Exam General: NAD, VS as above Resp: normal respiratory effort, lungs clear to auscultation CV: RRR, no murmur, Abd: normal bowel sounds, non tender, Extremities: Moves all extremities, no edema Neuro: A&O x3, Skin: intact, no lesions noted Discharge Plan Discharge Items Patient Disposition: Home - Home Health Services Reason For Visit: CLAUDIO, HYPOKALEMIA, FALL Discharge Diagnosis: CLAUDIO, Hypokalemia Activity: As commented below Activity Comment: work with therapy to get stronger Bathing: No limitations Non-emergency contact: Primary Care Provider Call non-emergency contact if: you have any medication questions, your symptoms worsen, your pain is not controlled and your temperature is above 101 Follow-up/Referrals: Shanice Urban CRNP [Primary Care Provider] - 07/27/24 3:00 pm (follow up within 7 days ) Diet: Heart Healthy Ambulatory Orders: Basic Metabolic Panel (Routine) Timeframe: 1 Week Location: Determined by Patient Ordered By: Jolynn Magallanes Attending Provider Instructions: Ms. Marcum, You were hospitalized after weakness and falls at home, this was likely from your dehydration from vomting, diarrhea and continued diuretics. You were treated with IV fluids and potassium supplementation and have felt better. PT has cleared you to go home with home health assistance. On the day of discharge you kidney function has improved, but it is not back down to normal. To help this it is very important that you are staying hydrated at home. STOP taking the chlorthalidone, this depletes water and electrolytes from your body. For now, your lasix is on hold. I have ordered repeat labs to be done on Friday. If home health cannot do this then you can go to any [facility] location. Results will go to Shanice Urban's office. Based on those labs will determine when you should resume your lasix. Recommendations: -Staying hydrated with water and electrolyte drinks, drinking at least 2 Liters of a fluid a day - stop chlorthalidone - labs on friday to determine when to resume lasix - take other medications as prescribed. - recommend smoking cessation Activity: You can do normal everyday activities as your body allows. Take rest breaks if you feel tired. Do not overexert. Stop activity if you have pain, shortness of breath or feel dizzy. Follow-up appointments: Make an appointment with your primary care physician within one week of discharge. A copy of this summary will be sent to them. Every time you see your primary care physician, or any other doctor, bring your medication list, and a list of questions. CONTACT YOUR PRIMARY CARE PROVIDER if you experience any of the following: Shortness of breath or difficulty breathing Fevers or chills Feeling tired with normal activity or experiencing dizziness or fainting Difficulty following your treatment plan, or difficulty taking medications - difficulty urinating, dark/concentrated urine CALL 911 OR GO TO THE EMERGENCY DEPARTMENT if you experience any of the following: Severe abdominal pain or nausea/vomiting Severe chest pain, or chest pain that radiates (moves) to your jaw or arm Sudden, severe shortness of breath or difficulty breathing - inability to urinate Thank you for allowing us to participate in your care. for home health: please drawn BMP on Wednesday 07/26 and send results to Shanice Urban [employer] [facility] office Pending Studies at Discharge: No Stand-Alone Forms: My HelpHub, Smoking Cessation Medications and DC Order Prescriptions: Continued eszopiclone [Lunesta] 2 mg tablet 2 mg PO HS PRN (Reason: insomnia) Qty: 30 0RF oxycodone 10 mg tablet 10 mg PO QID PRN (Reason: pain) Qty: 120 0RF nitroglycerin 0.4 mg tablet, sublingual 0.4 mg sublingual Q5M MDD 9 PRN (Reason: chest pain) Qty: 25 3RF Rx Instructions: do not exceed 3 doses per episode (DME) Spacer for Inhaler Misc See Rx Instructions .MEDSUPPLY Qty: 1 0RF Rx Instructions: As directed albuterol sulfate 90 mcg/actuation HFA aerosol inhaler 2 puff inhalation Q6H PRN (Reason: Shortness Of Breath Or Wheezing) Trelegy Ellipta 200-62.5-25 mcg blister with device 1 inh inhalation QAM ezetimibe 10 mg tablet 10 mg PO QAM dapagliflozin propanediol [Farxiga] 10 mg tablet 10 mg PO QAM tizanidine 4 mg tablet 4 mg PO BID sertraline 100 mg tablet 150 mg PO QAM metoprolol succinate 25 mg tablet extended release 24 hr 25 mg PO QAM levothyroxine 112 mcg tablet 112 mcg PO DAILYBB rosuvastatin 40 mg tablet 40 mg PO HS roflumilast 500 mcg tablet 500 mcg PO QAM Held furosemide 20 mg tablet 20 mg PO QAM Qty: 30 2RF Hold Instructions: Provider's Order - pending repeat labs Discontinued chlorthalidone 50 mg tablet 50 mg PO QAM Discharge Orders: Discharge Order (Routine); Ordered 07/23/24 Ordered By: Jolynn Dorsey/Other Patient Handouts: Acute Kidney Failure Dc Admission Data Admit Date/Time: 07/21/24 21:51 Attending Provider: Ann Marie Gillespie Admit Provider: Vinicius Ordonez Primary Care Provider: Shanice Urban Other Providers: Vinicius Ordonez; Renan Hanson [facility] Other Interventions: Discharge Summary Assessment (RN) Last Done: 07/23/24 16:02 Hospital Stay Data Consultations 07/21/24 21:10 ED Decision to Admit Stat Diagnostic Imagining Performed Chest X-Ray 07/21/24 17:39 Clinical History: Fall Technique: A frontal view of the chest was obtained Comparison is made with the prior examination dated 01/22/2024 Findings: There are no confluent pulmonary infiltrates. The heart size is within normal limits. No pleural effusion or pneumothorax is seen. There is no definite pulmonary nodule. No fracture is noted. No foreign body is seen Impression: No active disease Electronically signed by Eliseo Carson 07-21-2024 6:35 PM Hip/Pelvis X-Ray 07/21/24 17:39 Clinical History: Fall 2 views of the pelvis and right hip are submitted for review. Findings: No fracture or dislocation is seen. There is mild right hip osteoarthritis. No other osseous abnormality is identified. There are no radiopaque foreign bodies. Impression: 1. No definite fracture 2. Mild right hip osteoarthritis Electronically signed by Eliseo Carson 07-21-2024 6:34 PM Abdomen/Pelvis CT 07/21/24 19:16 Exam(s): CT ABDOMEN + PELVIS With Contrast IV Amt: 90 cc opti 320 EXAM: CT Abdomen and Pelvis With Intravenous Contrast CLINICAL HISTORY: Reason for exam: fall, right low back/hip pain. TECHNIQUE: Axial computed tomography images of the abdomen and pelvis with intravenous contrast. CTDI is 26.56 mGy and DLP is 1362.08 mGy-cm. Automated exposure control was utilized for the study. A dose lowering technique was utilized adhering to the principles of ALARA. CONTRAST: Patient received 90 cc opti 320 of IV contrast COMPARISON: No relevant prior studies available. FINDINGS: ABDOMEN: Liver: Unremarkable. Gallbladder and bile ducts: Cholelithiasis. Pancreas: Unremarkable. Spleen: Unremarkable. Adrenals: Unremarkable. Kidneys and ureters: Cortical scarring in the right kidney. Stomach and bowel: Unremarkable. PELVIS: Appendix: No findings to suggest acute appendicitis. Bladder: Unremarkable. Reproductive: Hysterectomy. ABDOMEN and PELVIS: Intraperitoneal space: Unremarkable. No free air. No significant fluid collection. Bones/joints: No acute fracture. Soft tissues: Unremarkable. Vasculature: Aortobiiliac atheromatous disease. Lymph nodes: Unremarkable. IMPRESSION: No acute traumatic injury. Electronically signed by: Don Rhodes MD 07/21/24 20:[address] 07/21/24 19:16 Exam(s): CT L SPINE With Contrast IV Amt: 90 cc opti 320 EXAM: CT Lumbar Spine With Intravenous Contrast CLINICAL HISTORY: Reason for exam: pain fall. TECHNIQUE: Axial computed tomography images of the lumbar spine with intravenous contrast. CTDI is 26 mGy and DLP is 1360 mGy-cm. Automated exposure control was utilized for the study. A dose lowering technique was utilized adhering to the principles of ALARA. CONTRAST: Patient received 90 cc opti 320 of IV contrast COMPARISON: No relevant prior studies available. FINDINGS: Vertebrae: No acute fracture or malalignment. Posterior pedicle screw and jonah construct from L3-L5. No hardware complication. Degenerative changes most pronounced at L2-3. No critical canal stenosis. Moderate bilateral foraminal stenosis at this level. Discs/spinal canal/neural foramina: See above. Soft tissues: Unremarkable. IMPRESSION: No acute fracture or malalignment. Electronically signed by: Don Rhodes MD 07/21/24 20:[address] 07/21/24 19:18 Exam(s): CT HEAD Without Contrast EXAM: CT Head Without Intravenous Contrast CLINICAL HISTORY: Reason for exam: dizziness. TECHNIQUE: Axial computed tomography images of the head/brain without intravenous contrast. CTDI is 35.65 mGy and DLP is 546.36 mGy-cm. Automated exposure control was utilized for the study. A dose lowering technique was utilized adhering to the principles of ALARA. COMPARISON: No relevant prior studies available. FINDINGS: Brain: No hemorrhage, extra-axial fluid collection, mass effect, or edema. Ventricles: Unremarkable. Bones/joints: Unremarkable. No fracture. Soft tissues: Unremarkable. Sinuses: No acute sinusitis. Mastoid air cells: Unremarkable as visualized. IMPRESSION: Unremarkable exam. Electronically signed by: Don Rhodes MD 07/21/24 20:42 PM Pending Results Patient Have Any Pending Studies at Discharge: No Discharge Instructions Given to Patient (Per Discharging Provider) Ms. Marcum, You were hospitalized after weakness and falls at home, this was likely from your dehydration from vomting, diarrhea and continued diuretics. You were treated with IV fluids and potassium supplementation and have felt better. PT has cleared you to go home with home health assistance. On the day of discharge you kidney function has improved, but it is not back down to normal. To help this it is very important that you are staying hydrated at home. STOP taking the chlorthalidone, this depletes water and electrolytes from your body. For now, your lasix is on hold. I have ordered repeat labs to be done on Friday. If home health cannot do this then you can go to any [facility] location. Results will go to Shanice Urban's office. Based on those labs will determine when you should resume your lasix. Recommendations: -Staying hydrated with water and electrolyte drinks, drinking at least 2 Liters of a fluid a day - stop chlorthalidone - labs on friday to determine when to resume lasix - take other medications as prescribed. - recommend smoking cessation Activity: You can do normal everyday activities as your body allows. Take rest breaks if you feel tired. Do not overexert. Stop activity if you have pain, shortness of breath or feel dizzy. Follow-up appointments: Make an appointment with your primary care physician within one week of discharge. A copy of this summary will be sent to them. Every time you see your primary care physician, or any other doctor, bring your medication list, and a list of questions. CONTACT YOUR PRIMARY CARE PROVIDER if you experience any of the following: Shortness of breath or difficulty breathing Fevers or chills Feeling tired with normal activity or experiencing dizziness or fainting Difficulty following your treatment plan, or difficulty taking medications - difficulty urinating, dark/concentrated urine CALL 911 OR GO TO THE EMERGENCY DEPARTMENT if you experience any of the following: Severe abdominal pain or nausea/vomiting Severe chest pain, or chest pain that radiates (moves) to your jaw or arm Sudden, severe shortness of breath or difficulty breathing - inability to urinate Thank you for allowing us to participate in your care. for home health: please drawn BMP on Wednesday 07/26 and send results to Shanice Urban [employer] [facility] office Supervising Physician Co-Signing Physician Notes PA Supervision Note: I did not personally see or examine the patient today, but I verified all velásquez points of JODY Ramos's assessment and plan with the following exceptions/additions: None Total Time Total Time Spent Total Time Spent (In Minutes): Time spent day of discharge 40 minutes including direct patient care, medication reconciliation, documentation, review of labs and images, and coordination of care. Coding Level of Care Code 56631 INP/OBS DISCH >30 MIN Diagnoses Acute kidney injury N17.9 Hypokalemia E87.6 Vomiting R11.10 Acute diarrhea R19.7 Leukocytosis D72.829 Fall W19.XXXA Chest pain R07.9 CHF (congestive heart failure) I50.9
[2024-07-23 16:22] VITALS: BP 135/66; PULSE 68; TEMP 97.9; O2SAT 93
--- NOTE | 2024-07-23 22:57 | Electrocardiogram Report ---
Test Reason : Blood Pressure : */* mmHG Vent. Rate : 83 BPM Atrial Rate : 83 BPM P-R Int : 136 ms QRS Dur : 162 ms QT Int : 450 ms P-R-T Axes : 57 -68 63 degrees QTcB Int : 528 ms Normal sinus rhythm Left axis deviation Right bundle branch block Minimal voltage criteria for LVH, may be normal variant ( R in aVL ) Septal infarct , age undetermined Abnormal ECG No previous ECGs available Confirmed by Gustavo Avalos ([id number]) on 07/23/2024 10:57:07 PM Referred By: REFERRED SELF Confirmed By: Gustavo Avalos
--- NOTE | 2024-07-23 22:59 | Electrocardiogram Report ---
Test Reason : Blood Pressure : */* mmHG Vent. Rate : 67 BPM Atrial Rate : 67 BPM P-R Int : 152 ms QRS Dur : 170 ms QT Int : 502 ms P-R-T Axes : 66 -70 29 degrees QTcB Int : 530 ms Normal sinus rhythm Left axis deviation Right bundle branch block Minimal voltage criteria for LVH, may be normal variant ( R in aVL ) Cannot rule out Septal infarct (cited on or before 21-Jul-2024) Abnormal ECG When compared with ECG of 21-Jul-2024 17:38, No significant change Confirmed by Gustavo Avalos ([id number]) on 07/23/2024 10:59:23 PM Referred By: REFERRED SELF Confirmed By: Gustavo Avalos
== END 2024-07-23 16:32 | disposition home health service (06) | DRG 641 ==
LOC: ED 17:23 → 2N 21:51 → SUATTDRO 21:51 → 2N 23:04
DX: E86.0 Dehydration; E11.9 Type 2 diabetes mellitus without complications; E03.9 Hypothyroidism, unspecified; I45.10 Unspecified right bundle-branch block; N17.9 Acute kidney failure, unspecified; R29.6 Repeated falls; Y92.019 Unspecified place in single-family (private) house as the place of occurrence of the external cause; I50.9 Heart failure, unspecified; L28.0 Lichen simplex chronicus; M54.9 Dorsalgia, unspecified; G89.29 Other chronic pain; J44.9 Chronic obstructive pulmonary disease, unspecified; R07.9 Chest pain, unspecified; G47.00 Insomnia, unspecified; I11.0 Hypertensive heart disease with heart failure; E87.6 Hypokalemia; T50.2X5A Adverse effect of carbonic-anhydrase inhibitors, benzothiadiazides and other diuretics, initial encounter; K21.9 Gastro-esophageal reflux disease without esophagitis; Z66 Do not resuscitate; Z79.890 Hormone replacement therapy; F17.210 Nicotine dependence, cigarettes, uncomplicated; R20.2 Paresthesia of skin; E78.5 Hyperlipidemia, unspecified

== ENCOUNTER 2024-09-24 08:46 | Observation (INO) ==
--- NOTE | 2024-09-24 09:27 | Pre Anesthesia Assessment ---
Date of Service September 24, 2024 Pre Sedation Assessment Vital Signs Temp Pulse Resp BP Pulse Ox O2 Del Method 09/24/24 08:49 196/93 H 09/24/24 08:48 36.8 C 80 17 97 Room Air Cardiovascular RRR, no murmur, no edema Respiratory normal respiratory effort, lungs clear to auscultation Pre-Sedation Airway Assessment Smoking Status: Current every day smoker Hx Sleep Apnea: No Short, Thick Neck: No Thyromental Distance: > or= 3.5 Finger Breadths Oral Cavity: + Dentures Mallampati Class: II ASA: ASA3 NPO Status Date of Last Intake of Fluids: 09/23/24 Time of Last Intake of Fluids: 19:00 Date of Last Intake of Solid Food: 09/23/24 Time of Last Intake of Solid Foods: 19:00 Notes The planned sedation has been discussed with the patient. Informed Consent was obtained. I have identified the patient, determined the appropriateness of se dation and have assessed the patient immediately prior to the procedure. All medicine(s) and interventions are by my order.
--- NOTE | 2024-09-24 09:27 | History & Physical Bridge Note ---
Date of Service September 24, 2024 History & Physical Bridge Note I have examined the patient, reviewed the History & Physical and in the interval since the performance of the History & Physical I have noted the following changes of clinical significance: no changes noted 69-year-old smoker who has been having progressive dyspnea and chest tightness. She underwent stress test which was concerning for possible ischemia. A cardiac CT angiography was ordered but the patient was unable to have the study because her insurance was not accepted by the [facility] system where the procedure needed to be done. Since that time she has had progressive symptoms and therefore request was made for her to undergo definitive evaluation by coronary angiography in the cardiac catheterization lab. The risk, benefits, and alternatives of procedure were discussed in detail with the patient. Risks include but are not limited to; , stroke, [place], renal failure, adverse drug reaction, infection, bleed, and need for emergent surgery. Lack of onsite cardiac surgical backup and plan for air evacuation in the event of emergency was also discussed. Patient's questions were answered in full. She voiced understanding wish proceed with catheterization plus or minus PCI. Her son is present with her today and voices no additional concerns. Plan coronary angiography plus or minus PCI
[2024-09-24] MEDS: niCARdipine 2,000 MCG/20 ML SYR ONE (09:33)
[2024-09-24] MEDS: NITROGLYCERIN/D5W 100MCG/ML 20ML SYR ONE (09:34)
[2024-09-24] MEDS: OPTIRAY 350 ONE (10:15)
[2024-09-24] MEDS: MIDAZOLAM HCL 1 MG/ML 2ML VIAL ONE (10:15)
[2024-09-24] MEDS: fentaNYL citrate PF 100 MCG/2 ML VIAL ONE (10:15)
[2024-09-24] MEDS: ASPIRIN 81 MG CHEW ONE (10:16)
[2024-09-24] MEDS: hydrALAZINE HCL 20 MG/ML VIAL ONE (10:16)
[2024-09-24] MEDS: TICAGRELOR 90 MG TAB ONE (10:16)
--- NOTE | 2024-09-24 10:20 | Post Anesthesia Assessment ---
Date of Service September 24, 2024 Post Sedation Assessment Vital Signs Temp Pulse Resp BP Pulse Ox O2 Del Method 09/24/24 08:49 196/93 H 09/24/24 08:48 36.8 C 80 17 97 Room Air Recovery Score Activity: Moves 4 extremities Respiration: Deep Breath/Cough Circulation: +/-20% PreAnes Value Consciousness: Fully Awake Oxygen Saturation: > 92% On Room Air Discharge Sedation Level of Care: Fast Track Phase II Post Sedation Plan On clinical assessment, the patient appears to have tolerated the sedation without complications. Patient is recovering as anticipated. Patient will continue to be monitored by nursing and may be discharged when sedation discharge criteria are met per below protocol. Upon Completions of procedure up to 15 minutes continue every 5 minute vital signs and the P.A.R. score; then discharge to a Phase I or Fast Track to Phase II per the following guidelines: * Discharge Patient to appropriate Phase II area if PAR is 8 or greater or return to pre- procedure baseline. The post - procedure orders will be as directed. * If PAR score is less than 8 or not return to pre-procedure baseline then patient will follow Phase I monitoring till PAR is reached for Phase II. The Phase I may be done in procedure room or may call to secure a Phase I area. * If naloxone or flumazenil are used for reversal, hold in Phase I for continued monitoring from when last reversal dose was given for a minimum of 60 minutes or longer pending the nurse and/or physician discretion of patient condition before discharge to Phase II. Please call the Sedation Physician to re-evaluate and complete post-note for discharge to Phase II area. Do NOT discharge from procedure sedation or Phase 1 until post- sedation evaluation note is complete by procedure /sedation MD Sedation Discharge Instructions to be given to the patient at discharge to home. [facility] [place] Procedure Codes (Charges) Indication for Procedure Indication for procedure: angina abnormal stress Sedation/Anesthesia Procedure 1: Sedation/Anesthesia: 00524 Mod Sedation by the same physician;Init15 Min Child Age 5 & Up (Initial 15 minutes, start time 0949) Total Sedation Time (minutes): 26 Procedure 2: Sedation/Anesthesia: 27092 Mod Sedation by the same physician; Ea [id number] Minutes (Additional 11 minutes, end time 1015) Total Sedation Time (minutes): 26
[2024-09-24] MEDS: HEPARIN (PORCINE) 1000 UNIT/ML 10 ML (CATH LAB USE ONLY) ONE (10:22)
[2024-09-24] MEDS ORDERED: hydrALAZINE HCL 20 MG/ML VIAL IV PRN (10:30)
[2024-09-24] MEDS: ALBUT/IPRATROP 3MG/0.5MG NEB 3 ML VIAL NEB STA (11:00)
--- NOTE | 2024-09-24 11:09 | Cardiac Catheterization ---
[facility] Data: Front End Developer Cardiac Status Clinical evaluation leading to the procedure CAD Presenation: Positive Stress Test and Stable angina Anginal Classification: CCS III Heart Failure: No Cardiogenic Shock within 24 Hours: No Cardiac Arrest within 24 Hours: No Imaging Studies Past 6 Months: No Stress Studies Past 6 Months: Yes (8 months ago, coronary CTA was recommended but insurance declined) Stress Echocardiogram: Yes - Positive Coronary Anatomy Dominant: Right Left Main (% Stenosis): Normal LAD (% Stenosis): Normal D1 (% Stenosis): Normal Circumflex (% Stenosis): Proximal (Less than 30%), Mid (Less than 30%) and Distal (Diffuse up to 30%) OM1 (% Stenosis): Normal OM2 (% Stenosis): Normal OM3 (% Stenosis): Normal L PL1 (% Stenosis): Normal RCA (% Stenosis): Normal R PDA (% Stenosis): Normal R PL1 (% Stenosis): Mid (Calcified 90 to 95%) Diagnostic Physicians Name: Jose Luis Tavares MD, PhD Closure Device Percutaneous Entry Location: Radial Closure Device: Radial Band Recommendations: Medical Therapy and/or Counseling and PCI without planned CABG PCI Indication: Angina despite med therapy and Stable Angina Lesion Segment Name: Ostial PLB branch Culprit Artery: Yes Stenosis Prior to Rx (%): 90 to 95% Chronic Total Occlusion: No Pre-Procedure JULIA Flow: 2 Previously Treated Lesion: No Lesion Complexity: Non-High/Non-C Lesion Length (mm): 10 Thrombus Present: No Bifurcation Lesion: Yes Guidewire Across Lesion: Yes Cardiac Cath Procedure Full Procedure Date September 24, 2024 Pre-Procedure Diagnosis Pre-Procedure Diagnosis: Angina (CCS class III) and Positive Stress Test AUC Score AUC Score: 07 Post-Procedure Diagnosis Post-Procedure Diagnosis: Severe CAD and Successful PCI Procedure(s) Performed Procedure(s) Performed: Coronary Angiography and Drug Eluting Stent Stable Attendant Jose Luis Tavares MD, PhD Estimated Blood Loss Estimated Blood Loss: Less than 5 cc Medication(s) Medication(s): Fentanyl, Heparin, Lidocaine 1%, Nicardipine, Nitroglycerin and Versed Summary of Findings Brief description: Patient was brought to the cardiac catheterization suite where she was shaved and prepped in a sterile fashion. Sedated using IV Versed and fentanyl. Soft tissues of the right wrist were anesthetized using 2 mL of 1% Xylocaine. The right radial artery was accessed with modified Seldinger technique and a 6 Chadian radial artery glide sheath was placed. Patient was provided anticoagulation with IV heparin and antispasmodics including nicardipine and nitroglycerin. She was also provided hydralazine for elevated blood pressure. All catheters were advanced and exchanged over a 0.035 J-tip wire. Left coronary angiography in orthogonal views with a 5 [place] 4 diagnostic catheter. Right coronary angiography in orthogonal views with a 5 [place] 4 diagnostic catheter. Diagnostic catheter was removed. Decision was made to proceed with PCI of the PLB branch. ACT was checked and additional heparin was provided as needed to maintain therapeutic anticoagulation. A 6 Chadian JR4 guide catheter was used to engage the right coronary artery. BMW reversal guidewire was advanced and positioned distal to the lesion in the posterolateral branch. Lesion was predilated using a 2.0 x 12 mm sprinter balloon initially at 8 yvonne followed by a inflation to 14 yvonne. A 2.25 x 18 mm candy point drug-eluting stent was then advanced over the wire spanning the lesion and then back into the main branch across a secondary branch. Stent was deployed at 14 yvonne. Stent balloon was removed and angiography performed. The guidewire was removed and final angiographic evaluation was performed. Guide catheter was removed. Radial artery sheath was removed and hemostasis was obtained using a TR band. Patient received 180 mg ticagrelor p.o. She already received 81 mg of aspirin last night and an additional 81 mg was given this morning. She remained hemodynamically stable and was therefore transferred to the holding area with plans for observation overnight. This ended the case. Coronary angiography findings: EBD-wikha-[id number] vessel bifurcating into LAD and circumflex. No disease. GLX-vsgse-gyrxsoi vessel. Gives a large septal branch and a large branching fi rst diagonal. After the mid segment the LAD branches becoming bifid and reaches the apex. There is no more than mild luminal irregularities in the LAD and its branches. ERa-yjfkx-ozhyjmt and nondominant. Proximal and mid vessel have up to 30% stenosis. There are is a large branching OM1 followed by a small OM 2 and small OM 3. The distal AV groove vessel has diffuse less than 30% stenosis and provides a small caliber posterolateral branch. SKY-anemz-uidqigw and dominant. It bifurcates early into a large caliber branching posterolateral as well as a large caliber long PDA which reaches the apex. There is mild luminal irregularities in the RCA and its branch vessels. However, the first branch of the posterolateral has an ostial 90 to 95% mild calcific lesion. PCI of PLB-there is 0% residual stenosis post PCI with a single drug-eluting stent covering the lesion as well as extending into the main vessel. JULIA-3 flow post PCI No evidence of dissection or perforation post PCI At the level of the bifurcation the other branch is jailed and there was some plaque shift. Stenosis 50% but JULIA-3 flow distally. Summary: 1. Severe single branch vessel disease status post PCI with good angiographic results 2. Dual antiplatelet therapy with aspirin 81 mg daily and Brilinta 90 mg p.o. twice daily as tolerated. If the patient is intolerant to Brilinta then we can switch to Plavix but this will require a loading dose of 300 mg followed by 75 mg daily. 3. Guideline directed medical therapy for secondary prevention of coronary disease to include low-dose aspirin, rosuvastatin, and metoprolol succinate ER as previously prescribed. 4. Because of the patient's lung disease and the addition of new medications we will have the patient stay overnight for observation. I will request the hospitalist see the patient for medical management and so that they are aware of her should anything untoward happen overnight. Hemodynamics Rest Ao:: 147/72 mmHg Final Ao: 154/73 mmHg LV: Not performed Recommendations Recommendations: Medical Therapy and/or Counseling and PCI without planned CABG Radiation Exposure (mGy) 1516 mGy, fluoroscopy time 6 minutes Contrast (mls) 140 cc Anesthesia 2 mg Versed, 50 mcg fentanyl IV. Start time 948, end time 1015 Procedural Complication(s) None Disposition Front End Developer Holding/Recovery I attest to the content of the Intraoperative Record and any orders documented therein. Any exceptions are noted below. [facility] Card Cath Procedure Codes Cardiac Catheterization Procedure 1: Cardiovascular Cath Procedures: 06504 Coronaries Moderate Sedation Procedure 1: Sedation/Anesthesia: 93589 Mod Sedation by the same physician;Init15 Min Child Age 5 & Up (Initial 15 minutes, start time 948) Procedure 2: Sedation/Anesthesia: 97745 Mod Sedation by the same physician; Ea [id number] Minutes (Additional 11 minutes, end time 1015) Stenting Procedure 1: Cardiovascular Stent Procedures: 94969 Perc transcatheter placement of intracoronary stent(s), with ang PG Care Time/CCT Total # of Minutes Spent Total Time Spent with Patient: Total time spent is greater than 50% in coordination of care (as documented) at patient's floor/unit and/or counseling patient:
[2024-09-24] MEDS: methylPREDNISolone 125 MG/2 ML VIAL ONE (11:19)
[2024-09-24] MEDS: diphenhydrAMINE 50 MG/ML VIAL ONE (11:19)
[2024-09-24] MEDS: FAMOTIDINE 20MG/5ML IV PUSH IV ONE (11:19)
[2024-09-24] MEDS: ALBUT/IPRATROP 3MG/0.5MG NEB 3 ML VIAL NEB SCH (18:23)
[2024-09-24] MEDS: ALBUT/IPRATROP 3MG/0.5MG NEB 3 ML VIAL ONE (18:23)
[2024-09-24] MEDS ORDERED: tiZANidine HCL 4 MG TABLET PO PRN (19:46)
[2024-09-24] MEDS ORDERED: oxyCODONE HCL IR 5 MG TAB (IMMEDIATE RELEASE) PO PRN ×2 (19:46→19:48)
[2024-09-24] MEDS ORDERED: ACETAMINOPHEN 500 MG TAB PO PRN (19:47)
--- NOTE | 2024-09-24 20:10 | Hospitalist Consultation ---
Date of Consultation September 24, 2024 Assessment & Plan (1) S/P cardiac catheterization: (2) High cholesterol: (3) Hypertension: (4) COPD (chronic obstructive pulmonary disease): (5) CKD (chronic kidney disease) stage 3, GFR 30-59 ml/min: (6) Lumbar degenerative disc disease: (7) Hypothyroid: (8) GERD (gastroesophageal reflux disease): (9) Depression with anxiety: (10) Diabetes: Plan Pt is a 69 yo female admitted after cardiac catheterization with stent placement at ostial B branch. Pt has PMH of COPD, daily smoker, CKD-3, hypothyroidism, depression/anxiety, chronic LBP, HLD, HTN and GERD. Patient admitted for observation and consulted ordered for multiple medical conditions. Pt is currently stable following cardiac procedure, able to ambulate in her room and without need for supplemental oxygen. Pt is noting LBP, mild SOB with activity, but denies chest pain, dizziness or nausea. Plan to manage her other medical conditions including COPD, CKD stage 3, hypothyroidism, Chronic LBP with use of opioids for pain control, aanxiety/depression, and GERD. #s/p cardiac stent - Per cardiology recommendation: Continue aspirin 81 mg daily Continue rosuvastatin 40mg daily Continue Metoprolol 50mg daily Continue ticagrelor 90mg BID #CHF - Continue furosemide 20mg and spironolactone 25mg at home #COPD - Continue home med of Trelegy qam - Continue Duonebs q6r - Albuterol inhaler PRN # CKD stage 3 - Cr is 1.34, baseline is 1.2- 1.3 - Will continue to monitor BMP in AM labs #Hypothyroidism - Holding Levothyroxine 112mcg # Chronic LBP - Continue home dose of Oxycodone 10mg QID PRN - Continue Tizanidine 4mg BID PRN #DM2 - Continue dapagliflozin 10mg - Monitor BSG in am labs #depression/anxiety - Continue sertaline Supervising Physician Co-Signing Physician Notes Patient seen and examined, chart reviewed, case discussed with Dr. Izquierdo and I agree with the assessment and plan as above History of Present Illness Reason for Consultation: complex med problems, s/p PCI. resp distress Requesting Physician: Dr. Jose Luis Tavares MD Attending Physician: Jose Luis Tavares MD, PhD History of Present Illness Pt is a 69 yo female admitted after cardiac catheterization with stent placement at ostial PLB branch. Pt has PMH of COPD, daily smoker, CKD-3, hypothyroidism, depression/anxiety, chronic LBP, HLD, HTN and GERD. Post catheterization, pt is reporting absence of chest pain, but has SOB with walking to/from bathroom. Breathing is easily recovered with seated rest. No supplemental oxygen needed. Pt is reporting primary complaint of low back pain and need for pain medication and muscle relaxer that she takes daily as well as sleeping medication. Pt denies fever/chills, chest pain, cough, congestion, nausea, vomiting, diarrhea, or dysuria. Allergies Allergy/AdvReac Type Severity Reaction Status Date / Time No Known Drug Allergies Allergy Unknown Verified 09/24/24 09:00 Home Medications Medication Instructions Recorded Confirmed Type albuterol sulfate 90 mcg/actuation 2 puff inhalation Q6H PRN 01/05/24 09/24/24 History aerosol inhaler Shortness Of Breath Or Wheezing fluticasone fur. 200 mcg-umeclid 1 inh inhalation QAM 01/05/24 09/24/24 History 62.5 mcg-vilant 25 mcg inhalat.powder (Trelegy Ellipta) nitroglycerin 0.4 mg sublingual 0.4 mg sublingual Q5M PRN chest 03/05/24 09/24/24 Rx tablet pain #25 tabs Spacer for Inhaler #1 ea 04/21/24 09/23/24 Rx furosemide 20 mg tablet 20 mg PO QAM #30 tabs 06/14/24 09/24/24 Rx sertraline 100 mg tablet 150 mg PO QAM 07/21/24 09/24/24 History roflumilast 500 mcg tablet 500 mcg PO QAM #30 tabs 08/02/24 09/24/24 Rx dapagliflozin propanediol 10 mg 10 mg PO QAM #30 tabs 08/12/24 09/24/24 Rx tablet (Farxiga) spironolactone 25 mg tablet 25 mg PO DAILY #30 tabs 08/31/24 09/24/24 Rx ezetimibe 10 mg tablet 10 mg PO QAM #90 tabs 09/07/24 09/24/24 Rx ensifentrine 3 mg/2.5 mL 3 mg (2.5 mL) inhalation BID #150 09/14/24 09/24/24 Rx suspension for nebulization mL (Ohtuvayre) rosuvastatin 40 mg tablet 40 mg PO HS #90 tabs 09/14/24 09/24/24 Rx eszopiclone 2 mg tablet (Lunesta) 2 mg PO HS PRN insomnia #30 tabs 09/16/24 09/24/24 Rx oxycodone 10 mg tablet 10 mg PO QID PRN pain #120 tabs 09/16/24 09/24/24 Rx tizanidine 4 mg tablet 4 mg PO BID PRN muscle spasticity 09/16/24 09/24/24 Rx #30 tabs doxycycline hyclate 100 mg capsule 100 mg PO BID 7 days #14 caps 09/21/24 09/24/24 Rx ipratropium 0.5 mg-albuterol 3 mg 3 ml inhalation Q6H PRN wheezing 09/21/24 09/24/24 Rx (2.5 mg base)/3 mL nebulization #90 mL soln prednisone 10 mg tablet 10 mg PO DAILY #21 tabs 09/21/24 09/24/24 Rx levothyroxine 112 mcg tablet 112 mcg PO DAILYBB #30 tabs 09/23/24 09/24/24 Rx aspirin 81 mg capsule 81 mg PO DAILY 09/24/24 09/24/24 History ticagrelor 90 mg tablet (Brilinta) 90 mg PO BID #180 tabs 09/24/24 Rx metoprolol succinate 25 mg 25 mg PO DAILY #30 tabs 09/25/24 Rx tablet,extended release 24 hr Patient History Medical History Right bundle branch block Acute kidney injury CHF (congestive heart failure) Surgical History History of back surgery S/P appendectomy S/P knee surgery S/P hernia surgery Family History Mother Breast cancer Denies family history of Ovarian cancer Prostate cancer Myocardial infarction Colorectal cancer Social History Smoking Status: Current every day smoker Tobacco Type: Cigarettes Age Started Using Tobacco: 14; packs per day: 0.5; Cigarettes Per Day: 5; Second Hand Exposure: No; Do You Dip or Chew Tobacco: No; Hx Alcohol Use: No Hx Substance Use: No Preferred Language: Eritrean Communication Ability: Effective White Spooler Required: No Beliefs That Will Affect Care: None marital status: Legally Current Living Situation: Family Current Living Situation Comment: son current occupational status: disabled How many Children do You have: 4 Feels Safe at Home: Yes Childhood Exposure to Second-Hand Smoke: Yes Diet: regular Dental Care, Regularly: No Physical Activity Frequency: Does not Exercise Seatbelt Use: always Sunscreen Use: Yes Assistive Devices: Denture - Upper, Denture - Lower and Glasses Review of Systems Review of Systems: As per HPI Physical Exam Physical Exam: Constitutional:A &O x 3, NAD HEENT: Normocephalic, PERRL, external ear is normal, trachea is midline, Respiratory: CTAB, normal work of breathing Cardiac: RRR, no murmurs, radial pulses are normal GI: Non-distended, normal bowel sounds, soft MSK: Moving all 4 extremities on command Skin: Bandage at right wrist is in tact and dry. No rashes Neuro: Sensation is normal at UE/LE Psych: Mood congruent Results & Data Results & Data Vital Signs (Past 12 Hours) Vital Signs Temp Pulse Pulse Pulse Resp BP Pulse Ox 09/24/24 19:16 36.6 C 61 18 154/77 H 94 09/24/24 18:23 64 16 96 09/24/24 15:41 36.5 C 60 18 152/74 H 97 09/24/24 15:24 55 L 09/24/24 15:23 65 09/24/24 14:50 36.6 C 57 L 19 146/74 H 99 09/24/24 14:05 36.4 C L 54 L 20 160/73 H 96 09/24/24 13:41 09/24/24 13:05 36.7 C 57 L 20 155/76 H 98 09/24/24 13:02 36.4 C L 60 22 177/75 H 95 09/24/24 12:00 62 20 168/72 H 98 09/24/24 11:45 60 20 140/93 98 09/24/24 11:30 61 20 169/76 H 94 09/24/24 11:15 61 22 189/82 H 94 09/24/24 11:10 88 18 95 09/24/24 11:00 59 L 16 125/79 96 09/24/24 10:45 63 16 151/70 H 96 09/24/24 10:30 65 16 161/84 H 95 09/24/24 08:49 196/93 H 09/24/24 08:48 36.8 C 80 17 97 O2 Del Method O2 Flow Rate 09/24/24 19:16 Room Air 09/24/24 18:23 Room Air 09/24/24 15:41 Room Air 09/24/24 15:24 09/24/24 15:23 09/24/24 14:50 Nasal Cannula 2 09/24/24 14:05 Nasal Cannula 2 09/24/24 13:41 Nasal Cannula 2 09/24/24 13:05 Nasal Cannula 2 09/24/24 13:02 Nasal Cannula 2 09/24/24 12:00 Nasal Cannula 2 09/24/24 11:45 Nasal Cannula 2 09/24/24 11:30 Room Air 09/24/24 11:15 Room Air 09/24/24 11:10 Room Air 09/24/24 11:00 Room Air 09/24/24 10:45 Room Air 09/24/24 10:30 Room Air 09/24/24 08:49 09/24/24 08:48 Room Air Laboratory Results Abnormal lab results 09/24/24 09/24/24 Range/Units 10:02 10:19 Activ Coag Time Kaolin 193 H 204 H (94-140) SECONDS Resident Activity Tracking Resident Involvement: Resident Care Provided Care Provided: Adult Hospital Medicine (3) Hypertension Hypertension type: primary hypertension Qualified Code(s): I10 - Essential (primary) hypertension
--- NOTE | 2024-09-24 20:37 | Electrocardiogram Report ---
Test Reason : Blood Pressure : */* mmHG Vent. Rate : 61 BPM Atrial Rate : 61 BPM P-R Int : 126 ms QRS Dur : 150 ms QT Int : 456 ms P-R-T Axes : 66 -57 -12 degrees QTcB Int : 459 ms Normal sinus rhythm Left axis deviation Right bundle branch block Minimal voltage criteria for LVH, may be normal variant Abnormal ECG When compared with ECG of 21-Jul-2024 21:16, Nonspecific T wave abnormality has replaced inverted T waves in Anterior leads QT has shortened Confirmed by Bharathi De La Fuente ([id number]) on 09/24/2024 8:36:33 PM Referred By: Bill Gabriel Confirmed By: Bharathi De La Fuente
[2024-09-24] MEDS: MELATONIN 3 MG TAB PO PRN (21:00)
[2024-09-24] MEDS ORDERED: NITROGLYCERIN SL 0.4 MG/TAB TAB SL PRN (21:08)
[2024-09-24] MEDS ORDERED: ALBUTEROL HFA 8 GM INHALER INH PRN (21:08)
[2024-09-24] MEDS: TICAGRELOR 90 MG TAB PO SCH (21:17)
[2024-09-24] MEDS ORDERED: ESZOPICLONE 1 MG TAB PO PRN (21:22)
[2024-09-25 01:09] LABS: Hematocrit (blood only) 36.2 % (37.0-47.0); Hemoglobin 11.9 g/dl (12.0-16.0); Mean Corpuscular Hemoglobin 27.4 pg (25.0-34.0); Mean Corpuscular Hgb Conc 32.9 g/dL (32.0-36.0); Mean Corpuscular Volume 83.2 fL (80.0-100.0); Mean Platelet Volume 11.4 fL (9.4-12.4); Platelet Count 189 K/uL (130-400); RDW Coefficient of Variation 15.7 % (11.5-14.5); RDW Standard Deviation 47.5 fL (36.4-46.3); Red Blood Count 4.35 M/uL (4.20-5.40); White Blood Count 16.22 K/ul (4.8-10.8)
[2024-09-25 01:25] LABS: BUN Creatinine Ratio 19.4 (10-20); Calcium 8.9 mg/dl (8.6-10.3); Creatinine Clr Calc Pharmacy 32.5 ml/min; Magnesium 1.8 mg/dl (1.7-2.4)
--- NOTE | 2024-09-25 06:53 | Billing Data ---
Date of Service September 24, 2024 Coding Level of Care Code 84248 INT INP/OBS CARE
[2024-09-25 07:43] VITALS: TEMP 97.9
[2024-09-25] MEDS: ASPIRIN 81 MG ECTAB PO SCH (08:29)
[2024-09-25] MEDS ORDERED: EMPAGLIFLOZIN 10 MG TAB PO SCH (09:00)
[2024-09-25] MEDS ORDERED: NON-FORMULARY MEDICATION (Fluticasone-Umeclidin-Vilanter [Trelegy Ellipta] 200-62.5-25 mcg INH SCH (09:00)
[2024-09-25] MEDS ORDERED: FUROSEMIDE 20 MG TAB PO SCH (09:00)
[2024-09-25] MEDS ORDERED: SPIRONOLACTONE 25 MG TAB PO SCH (09:00)
[2024-09-25] MEDS: SERTRALINE HCL 50 MG TABLET PO SCH (09:21)
[2024-09-25] MEDS: ROSUVASTATIN CALCIUM 20 MG TAB PO SCH (09:21)
[2024-09-25] MEDS: FLUTICASONE FUROATE 200MCG 14 PUFFS/INHALER INH SCH (09:21)
[2024-09-25] MEDS: UMECLIDINIUM/VILANTEROL 62.5/25MCG 7 PUFFS/INHALER INH SCH (09:22)
[2024-09-25] MEDS: METOPROLOL SUCC 50MG EXT REL TAB PO SCH (09:23)
[2024-09-25 11:12] VITALS: BP 174/73
--- NOTE | 2024-09-25 11:33 | Cardiology Progress Note ---
Date of Service September 25, 2024 Assessment & Plan (1) S/P drug eluting coronary stent placement: Plan: Okay for discharge on dual antiplatelet therapy (aspirin and ticagrelor). (2) CAD (coronary artery disease): Plan: No remaining occlusive disease post stenting. Continue vascular risk factor modification. (3) Hypertension: Plan: Continue vasoactive regimen of furosemide, metoprolol, spironolactone. Somewhat elevated BP today, hopefully with resumption of furosemide this will moderate. With relative bradycardia, would reduce metoprolol succinate from 50 mg daily to 25 mg daily. (4) COPD (chronic obstructive pulmonary disease): Plan: Compensated. Admission and Anticipated Discharge Date Admission Date: September 24, 2024 Subjective No complaints. Uneventful night. Denies chest pain, dyspnea, or palpitations. Telemetry showed sinus bradycardia/sinus rhythm (rate 43-73 bpm). No dysrhythmias. Physical Exam Physical Exam: No distress. BP and mild to moderately hypertensive. Pulse 55 bpm and regular. Respirations 17 unlabored. Skin: no ecchymoses or generalized lesions. HEENT: unremarkable. Neck: JVP just above the clavicle at 90 degrees, no carotid bruits. Lungs: Moderately decreased breath sounds but clear. Cardiac: regular rhythm, normal S1-2, no murmur. Abdomen: benign. Extremities: no edema, pulses intact. Right radial access site benign. Neurologic: normal affect and conversation, nonfocal. Results & Data Vital Signs (Past 12 Hours) Vital Signs Temp Pulse Pulse Resp BP Pulse Ox O2 Del Method 09/25/24 11:10 97.9 F 55 L 17 174/73 H 97 Room Air 09/25/24 09:40 51 L 09/25/24 09:27 Room Air, Nasal Cannula 09/25/24 07:42 97.9 F 47 L 18 153/68 H 95 Room Air 09/25/24 07:04 56 L 17 95 Room Air 09/25/24 03:45 97.5 F L 73 17 172/80 H 93 Room Air O2 Flow Rate 09/25/24 11:10 09/25/24 09:40 09/25/24 09:27 2 09/25/24 07:42 09/25/24 07:04 09/25/24 03:45 Laboratory Results Normal electrolytes, BUN 33, creatinine 1.7. PG Care Time/CCT Total # of Minutes Spent Total Time Spent with Patient: Total time spent is greater than 50% in coordination of care (as documented) at patient's floor/unit and/or counseling patient: Coding Level of Care Code 35767 SUB INP/OBS CARE 2/35MIN Diagnoses S/P drug eluting coronary stent placement Z95.5 CAD (coronary artery disease) I25.10 Primary hypertension I10 Hypertension type: primary hypertension COPD (chronic obstructive pulmonary disease) J44.9 (3) Hypertension Hypertension type: primary hypertension Qualified Code(s): I10 - Essential (primary) hypertension
[2024-09-25 12:25] VITALS: PULSE 66; RESP 16; O2SAT 96
[2024-09-25] MEDS: INFLUENZA VACC TS2024-25(65y+)/PF (IIV3) 0.5mL Syr IM ONE (12:57)
--- NOTE | 2024-09-25 18:59 | Discharge Summary ---
Discharge Summary Date of Service September 25, 2024 Principal Dx & Hospital Course #1 = Principal Diagnosis (1) CAD (coronary artery disease): (2) S/P drug eluting coronary stent placement: (3) CKD (chronic kidney disease) stage 3, GFR 30-59 ml/min: (4) COPD (chronic obstructive pulmonary disease): (5) Diabetes: Plan 69-year-old woman who was found to have abnormal stress test was able to get coronary CTA because of insurance coverage, brought in for coronary angiography for suspected coronary artery disease. She has multiple risk factors including hypertension hyperlipidemia diabetes and ongoing tobacco smoking 09/24 she had coronary angiography with PCI to ostial PLB branch of right coronary artery no immediate complications I examined right wrist radial access site - without any hematoma or ecchymosis radial and ulnar pulses are strong, hand well- perfused she does have some dyspnea on exertion related to her COPD however dyspnea has improved post stenting she will continue her metoprolol which we reduced to 25 mg daily because of bradycardia during telemetry monitoring, rosuvastatin 40 mg daily, DAPT with aspirin and ticagrelor she had mild increase of creatinine from 1.3 up to 1.6 today, although 1.6 is still within her baseline range with her CKD stage III. I held her Lasix spironolactone and SGLT2 this morning and she will resume them tomorrow I discussed the plan of care with the tools administrator Dr. Gandhi today and reviewed the recommendations in his note I called her outpatient pharmacy and spoke with the pharmacist, confirmed that Brilinta was available for pickup today and that she does not have any co-pay Notes For Next Care Provider recommend BMP upon follow-up may need additional antihypertensives Medication Changes From Visit metoprolol decreased from 50 mg down to 25 mg for bradycardia. Aspirin and ticagrelor were started Discharge Exam PHYSICAL EXAMINATION Last 24h vital signs reviewed, see documentation in flowsheet General: comfortable appearing, no distress HEENT: Normocephalic, atraumatic, pupils round and equal, sclerae anicteric, no conjunctival injection, moist mucus membranes Lungs: mildly increased work of breathing. slightly coarse bilaterally with increased expiratory phase. No RRW Heart: Regular rate and rhythm, no murmurs. No JVD. right wrist arterial puncture site is intact see above description Abdomen: Soft, nontender, nondistended. Bowel sounds present. Extremities: Warm, dry, well-perfused. No extremity edema. Neuro: Alert and oriented x 4, face symmetric, moves 4 extremities well Psych: Normal affect and behavior Discharge Plan Discharge Items Patient Disposition: Home - Self-Care Reason For Visit: ANGINA, ABNORMAL STRESS Discharge Diagnosis: severe CAD s/p PCI Activity: Per Instructions section Non-emergency contact: Primary Care Provider and Still Operator Brandy Call non-emergency contact if: you have any medication questions, your symptoms worsen, your pain is not controlled, you have a fever, your wound has increased drainage and your wound pain has increased Follow-up/Referrals: Shanice Urban CRNP [Primary Care Provider] - Diet: Heart Healthy Addtl Attending Provider Instructions: ACTIVITY RECOMMENDATIONS: Excess manipulation of the wrist should be avoided for the next 24-48 hours. * No lifting over 2 pounds (approximately a 1/2 gallon of milk) with the utilized arm for 24 hours. * No strenuous activity such as bowling or tennis for 3 days. * Keep the site of the procedure covered with a bandage for 24 hours. *You may shower the day after the procedure. Do not take a tub bath or submerge the puncture site in water for the next 3 days. *Do not operate any motorized equipment for 3 days. SPECIAL CARE INSTRUCTIONS: The site may be slightly bruised and sore following your procedure. Should any of the following occur, contact the Dr. who performed your procedure. 1. Redness/inflammation, swelling, chills, or fever, or colored drainage at procedure site within 3-7 days after your procedure. 2. Coldness, discoloration, ongoing numbness, severe pain, or swelling. Expect mild tingling of hand and tenderness at the puncture site for up to three days. If this persists beyond three days, or other symptoms develop, notify the Dr. who performed your procedure. BLEEDING: If the procedure site on your wrist begins to bleed, do not panic 1. Place 1 or 2 fingers firmly just slightly above the insertion site to stop the bleeding. You may be able to feel your pulse as you hold pressure. 2. Lift your finger after 5 minutes to see if the bleeding has stopped. 3. Once the bleeding has stopped, gently wipe the wrist area clean with a bandage. * If the bleeding from your wrist does not stop after 10 minutes, or if there is a large amount of bleeding or spurting, call 911 (do not drive yourself to the hospital). SKIN IRRITATION: * You may experience some redness and/or swelling in the area where radiation was administered. If any skin irritation occurs, please contact your family physician. FOLLOW UP VISIT: Keep any scheduled doctor appointments. Addtl Supervisor [employer] Provider Instructions: Continue aspirin and brilinta until your tools administrator tells you to stop. Usually you need to be on both for at least a year, then eventually aspirin alone. It is critical not to run out of these or stop early, because your stent could clot up which can result in a severe heart attack We decreased your metoprolol dose to 25 mg daily because of low heart rate I talked to the [facility] pharmacy and your medications are available - make sure to pick them up today because your next dose of Brilinta is tonight Continue your other medications Follow up with cardiology clinic - ideally within a few weeks It was a pleasure taking care of you in the hospital, Rocio Gonzalez MD Pending Studies at Discharge: No Stand-Alone Forms: My [facility] Medications and DC Order Prescriptions: New Brilinta 90 mg Tablet 90 mg PO BID Qty: 180 3RF metoprolol succinate 25 mg tablet extended release 24 hr 25 mg PO DAILY Qty: 30 0RF Continued furosemide 20 mg tablet 20 mg PO QAM Qty: 30 2RF Hold Instructions: Provider's Order - pending repeat labs roflumilast 500 mcg tablet 500 mcg PO QAM Qty: 30 3RF dapagliflozin propanediol [Farxiga] 10 mg tablet 10 mg PO QAM Qty: 30 2RF spironolactone 25 mg tablet 25 mg PO DAILY Qty: 30 2RF ezetimibe 10 mg tablet 10 mg PO QAM Qty: 90 1RF rosuvastatin 40 mg tablet 40 mg PO HS Qty: 90 3RF Ohtuvayre 3 mg/2.5 mL suspension for nebulization 3 mg inhalation BID Qty: 150 11RF tizanidine 4 mg tablet 4 mg PO BID PRN (Reason: muscle spasticity) Qty: 30 0RF eszopiclone [Lunesta] 2 mg tablet 2 mg PO HS PRN (Reason: insomnia) Qty: 30 0RF oxycodone 10 mg tablet 10 mg PO QID PRN (Reason: pain) Qty: 120 0RF levothyroxine 112 mcg tablet 112 mcg PO DAILYBB Qty: 30 2RF nitroglycerin 0.4 mg tablet, sublingual 0.4 mg sublingual Q5M MDD 9 PRN (Reason: chest pain) Qty: 25 3RF Rx Instructions: do not exceed 3 doses per episode (DME) Spacer for Inhaler Misc See Rx Instructions .MEDSUPPLY Qty: 1 0RF Rx Instructions: As directed albuterol sulfate 90 mcg/actuation HFA aerosol inhaler 2 puff inhalation Q6H PRN (Reason: Shortness Of Breath Or Wheezing) Trelegy Ellipta 200-62.5-25 mcg blister with device 1 inh inhalation QAM prednisone 10 mg tablet 10 mg PO DAILY Qty: 21 0RF Rx Instructions: 4 tabs for 3 days, 2 tabs for 3 days, 1 tab for 3 days doxycycline hyclate 100 mg capsule 100 mg PO BID 7 Days Qty: 14 0RF ipratropium-albuterol 0.5 mg-3 mg(2.5 mg base)/3 mL solution for nebulization 3 ml inhalation Q6H PRN (Reason: wheezing) Qty: 90 0RF sertraline 100 mg tablet 150 mg PO QAM aspirin 81 mg Capsule 81 mg PO DAILY Discontinued metoprolol succinate 50 mg tablet extended release 24 hr 50 mg PO QAM Qty: 90 3RF Discharge Orders: Discharge Order (Routine); Ordered 09/25/24 Ordered By: Rocio Dorsey/Other Patient Handouts: Coronary Stents, Having Cardiac Catheterization Admission Data Admit Date/Time: 09/24/24 10:20 Attending Provider: Jose Luis Tavares Admit Provider: Jose Luis Tavares Primary Care Provider: Shanice Urban Other Providers: Vinicius Ordonez; Kyree Anderson; Jourdan Martinez; Dwight Romo; Denton Bowser; Ann Marie Gillespie; Jolie Marsh; Jeaneth Pabon; Kiarra Araiza; George West; Angely Moses; Bharathi Fu; Kyree Dave; Conrado Cabrales; Uriah Zhong; Rocio Gonzalez,Rocio E; Nelly Watson; Lori Savage; Colleen Linares; Shannon Ward; Km Kurtz; Donald Pickens; Agatha Tinoco; Jolynn Ramos; Elvira De La Torre; Girish Sánchez; Martínez Zamorano; Dwight Yang; Cris Chatman; Swati Rosario; Jasmina Rothman; Gene Rhodes; Raul Elizalde; Rebecca Meehan; Enrique Prado; Mara Lyman; Tony Sloan; Estephania Giraldo; Teresa Yu; Marielle Gorman; Liliana Peralta Other Interventions: Discharge Summary Assessment (RN) Last Done: 09/25/24 12:41 Hospital Stay Data Consultations 09/24/24 11:44 Consult Hospitalist Routine Procedures Performed Operation Date: 09/24/24 09:30 Actual Procedures p Cineradiography w/Routine Exam - Jose Luis Tavares MD, PhD s Cath, Coronaries ONLY (no LV) - Jose Luis Tavares MD, PhD s Drug Eluting Stent SGl Vessel - Jose Luis Tavares MD, PhD Diagnostic Imagining Performed 09/24/24 07:01 CL Cath Imgs for PACS use only Routine Pending Results Patient Have Any Pending Studies at Discharge: No Discharge Instructions Given to Patient (Per Discharging Provider) ACTIVITY RECOMMENDATIONS: Excess manipulation of the wrist should be avoided for the next 24-48 hours. * No lifting over 2 pounds (approximately a 1/2 gallon of milk) with the utilized arm for 24 hours. * No strenuous activity such as bowling or tennis for 3 days. * Keep the site of the procedure covered with a bandage for 24 hours. *You may shower the day after the procedure. Do not take a tub bath or submerge the puncture site in water for the next 3 days. *Do not operate any motorized equipment for 3 days. SPECIAL CARE INSTRUCTIONS: The site may be slightly bruised and sore following your procedure. Should any of the following occur, contact the Dr. who performed your procedure. 1. Redness/inflammation, swelling, chills, or fever, or colored drainage at procedure site within 3-7 days after your procedure. 2. Coldness, discoloration, ongoing numbness, severe pain, or swelling. Expect mild tingling of hand and tenderness at the puncture site for up to three days. If this persists beyond three days, or other symptoms develop, notify the Dr. who performed your procedure. BLEEDING: If the procedure site on your wrist begins to bleed, do not panic 1. Place 1 or 2 fingers firmly just slightly above the insertion site to stop the bleeding. You may be able to feel your pulse as you hold pressure. 2. Lift your finger after 5 minutes to see if the bleeding has stopped. 3. Once the bleeding has stopped, gently wipe the wrist area clean with a bandage. * If the bleeding from your wrist does not stop after 10 minutes, or if there is a large amount of bleeding or spurting, call 911 (do not drive yourself to the hospital). SKIN IRRITATION: * You may experience some redness and/or swelling in the area where radiation was administered. If any skin irritation occurs, please contact your family physician. FOLLOW UP VISIT: Keep any scheduled doctor appointments. Total Time Total Time Spent Total Time Spent (In Minutes): I personally spent: 45 minutes today on clinical care activities including: reviewing chart notes and vital signs reviewing labs reviewing studies discussion with clinical science consultant(s) discussion with outpatient pharmacist examining and counseling the patient writing prescriptions, discharge instructions documentation Coding Level of Care Code 59589 INP/OBS DISCH >30 MIN Diagnoses CAD (coronary artery disease) I25.10 S/P drug eluting coronary stent placement Z95.5 CKD (chronic kidney disease) stage 3, GFR 30-59 ml/min N18.30 COPD (chronic obstructive pulmonary disease) J44.9 Diabetes E11.9
--- NOTE | 2024-09-27 14:12 | Electrocardiogram Report ---
Test Reason : Blood Pressure : */* mmHG Vent. Rate : 45 BPM Atrial Rate : 45 BPM P-R Int : 130 ms QRS Dur : 152 ms QT Int : 558 ms P-R-T Axes : 62 -64 -46 degrees QTcB Int : 482 ms Sinus bradycardia Right bundle branch block Left anterior fascicular block Bifascicular block Minimal voltage criteria for LVH, may be normal variant ( R in aVL ) T wave abnormality, consider inferior ischemia Abnormal ECG When compared with ECG of 24-Sep-2024 10:40, T wave inversion now evident in Lateral leads Confirmed by Jose Raymundo ([id number]) on 09/27/2024 2:12:14 PM Referred By: Bill Gabriel Confirmed By: Jose Raymundo
== END 2024-09-25 13:50 | disposition home or self-care (01) ==
LOC: 2S 08:46 → CC 08:46
PROC: CLB.CCO (2024-09-24 09:30)